=== PATIENT | female | born 1955 | race Caucasian/White ===

== ENCOUNTER 2018-03-28 15:01 | Outpatient (CLI) | payer OTHER, SELFPAY ==
[2018-03-28 15:21] LABS: Absolute Basophil Count 0.01 k/cumm (0.0-0.2); Absolute Eosinophil Count 0.06 k/cumm (0.0-0.7); Absolute Lymphocyte Count 0.95 k/cumm (1.2-3.4); Absolute Monocyte Count 0.89 k/cumm (0.11-0.7); Absolute Neutrophil Count 1.59 k/cumm (1.2-6.7); Basophils % 0.3; Eosinophils % 1.7; HGB 12.4 g/dL (12.0-15.5); Lymphocytes % 27.1; Mean Corp. HGB Concentration 33.5 g/dL (32.0-36.0); Mean Corpuscular Hemoglobin 33.5 pg (27.0-33.0); Mean Platelet Volume 8.4 fL (8.0-11.0); Monocytes % 25.4; Neutrophils % 45.5; Platelet Count 188 x1000/uL (130-400); RBC Distribution Width 12.6 % (11.7-14.6)
[2018-03-28 15:33] LABS: ALT 28 U/L (12-78); AST 23 U/L (15-37); Alkaline Phosphatase 48 U/L (46-116); BUN 17 mg/dL (7-18); Bilirubin, Total 0.5 mg/dL (0.2-1.0); Calcium 8.7 mg/dL (8.5-10.1); Chloride 99 mmol/L (98-107); Glucose 89 mg/dL (70-100); Potassium 4.1 mmol/L (3.5-5.1); Sodium 135 mmol/L (136-145); Total Protein 7.4 g/dL (6.4-8.2)
== END 2018-03-28 15:21 ==
PROVIDERS: PCP Family Medicine; Visit Provider Internal Medicine Hematology & Oncology
DX: Z85.048 Personal history of other malignant neoplasm of rectum, rectosigmoid junction, and anus (principal)
CPT/HCPCS: 36415; 80053; 85025

== ENCOUNTER 2018-09-25 15:29 | Outpatient (CLI) | payer OTHER, SELFPAY ==
[2018-09-25 15:54] LABS: Abs Immature Grans 0.01 k/cumm (0.0-0.09); HCT 40.1 % (36.0-46.0); HGB 13.3 g/dL (12.0-15.5); Mean Corp. HGB Concentration 33.2 g/dL (32.0-36.0); Mean Corpuscular Hemoglobin 33.1 pg (27.0-33.0); Mean Corpuscular Volume 99.8 fL (80-95); Platelet Count 208 x1000/uL (130-400); RBC 4.02 m/cumm (4.00-5.20); RBC Distribution Width 12.6 % (11.7-14.6)
[2018-09-25 16:08] LABS: ALT 24 U/L (12-78); AST 21 U/L (15-37); Albumin 4.3 g/dL (3.4-5.0); Alkaline Phosphatase 62 U/L (46-116); Anion Gap 6.1 mmol/L (3-11); BUN 9 mg/dL (7-18); Bilirubin, Total 0.4 mg/dL (0.2-1.0); CO2 32.9 mmol/L (21.0-32.0); Calcium 9.2 mg/dL (8.5-10.1); Chloride 102 mmol/L (98-107); Glucose 84 mg/dL (70-100); Potassium 4.1 mmol/L (3.5-5.1); Sodium 141 mmol/L (136-145); Total Protein 7.8 g/dL (6.4-8.2)
[2018-09-25 16:38] LABS: Absolute Lymphocyte Count 0.88 k/cumm (1.2-3.4); Absolute Monocyte Count 0.65 k/cumm (0.11-0.7); Absolute Neutrophil Count 1.77 k/cumm (1.2-6.7); Atypical Lymphocytes % 4; Diff Comment Manual Differential; RBC Morphology Normal
== END 2018-09-25 15:49 ==
PROVIDERS: PCP General Practice; Visit Provider Nurse Practitioner Adult Health
DX: C21.0 Malignant neoplasm of anus, unspecified (principal)
CPT/HCPCS: 36415; 80053; 85025

== ENCOUNTER 2019-01-29 11:09 | Outpatient (CLI) | payer OTHER, SELFPAY ==
--- NOTE | 2019-01-29 13:04 | DI.RAD_ITS ---
SYMPTOMS/DIAGNOSIS: HIP PAIN BILATERAL HIPS AND PELVIS: In the right hip there is mild joint space narrowing and subchondral sclerosis. Mild spurring of the acetabulum is noted. In the left hip there is mild sclerosis and spurring at the acetabulum. The sacroiliac joints and symphysis pubis are intact. The bones are normally mineralized. Mild degenerative changes are seen in the lower lumbar spine. The soft tissues are unremarkable. IMPRESSION: Mild degenerative changes of the hips bilaterally.
== END 2019-01-29 11:29 ==
PROVIDERS: Visit Provider General Practice
DX: M25.551 Pain in right hip (principal); M25.552 Pain in left hip; M16.0 Bilateral primary osteoarthritis of hip
CPT/HCPCS: 73521

== ENCOUNTER 2019-02-21 07:34 | Outpatient (CLI) | payer OTHER, SELFPAY ==
--- NOTE | 2019-02-21 11:00 | DI.RAD_ITS ---
SYMPTOM/DIAGNOSIS: LT HIP INJECTION, LT HIP DJD, M16.12, RT HIP INJECTION, RT HIP DJD FLUOROSCOPY: Fluoroscopy Time: 8.8 seconds Fluoroscopy was utilized by Dr. Plaza during left hip injection. Hard copy shows intra-articular injection of the left hip. Fluoroscopy Time: 4.9 seconds Fluoroscopy was utilized by Dr. Plaza during right hip injection. Hard copy shows intra-articular injection of the right hip.
--- NOTE | 2019-02-21 11:44 | W.PROCNOTE ---
Date of service: 02/21/19 Time of Service: 11:24 Procedure Note Date of procedure: 02/21/19 Procedure: Bilateral Hip Injection with Fluoroscopic Guidance Surgeon/Proceduralist/Physician: Caesar Plaza Procedure Diagnosis: Bilateral Hip Osteoarthritis Procedure Indications: Meghana has had persistent pain of the bilateral hip and groin. Noninvasive measures have been tried. The pain has not responded to normal measures and there is some early arthritis on the x-rays. To serve as both diagnostic and therapeutic, an injection under fluoroscopy was recommended. I had discussed the risks of the procedure and the patient elected to proceed. Procedure Description: Meghana was greeted in the flouroscopy room. The correct side was identified and the consent was reviewed with the patient and signed. The patient was then placed in the supine position on the fluoroscopy table. The LEFT hip was then prepped with Chloraprep. The anterolateral injection starting point was identiifed by bony landmarks and fluoroscopy. The skin and soft tissue in the tract of the injection was anesthetized with 1% Lidocaine. A spinal needle was then inserted deep into the hip joint at the level of the lateral femoral neck under fluoroscopic guidance. A small amount of Omnipaque solution was injected to confirm intraarticular placement. Once confirmed, the hip was injected with 5cc of 0.5% Bupivicaine and 80mg of Depo-Medrol. A bandaid was placed on the injection site. The back table was kept sterile and the draping and patient was repositioned. The RIGHT hip was then prepped with Chloraprep. The anterolateral injection starting point was identiifed by bony landmarks and fluoroscopy. The skin and soft tissue in the tract of the injection was anesthetized with 1% Lidocaine. A spinal needle was then inserted deep into the hip joint at the level of the lateral femoral neck under fluoroscopic guidance. A small amount of Omnipaque solution was injected to confirm intraarticular placement. Once confirmed, the hip was injected with 5cc of 0.5% Bupivicaine and 80mg of Depo-Medrol. A bandaid was placed on the injection site. The patient tolerated the procedure well and noted improvement in pre-injection pain.
[2019-02-21] MEDS: Omnipaque 300 MG/ML 10 ML BTL IJ (12:17)
[2019-02-21] MEDS: methylPREDNISolone ACETATE 80 MG/ML VIAL IM (12:17)
[2019-02-21] MEDS: Bupivacaine 0.5% Pres-Free 10 ML VIAL IJ (12:19)
== END 2019-02-21 07:54 ==
PROVIDERS: PCP General Practice; Visit Provider Student in an Organized Health Care Education/Training Program
DX: M25.551 Pain in right hip (principal); M25.552 Pain in left hip; M16.0 Bilateral primary osteoarthritis of hip
CPT/HCPCS: 20610; 77002; J1040

== ENCOUNTER 2019-04-12 11:23 | Outpatient (CLI) | payer OTHER, SELFPAY ==
[2019-04-12 15:26] LABS: Calculated LDL 144 mg/dL; Cholesterol 244 mg/dL (50-200); HDL Cholesterol 93 mg/dL (40-60); Triglyceride 39 mg/dL (30-150)
== END 2019-04-12 11:43 ==
PROVIDERS: PCP General Practice; Visit Provider General Practice
DX: Z13.220 Encounter for screening for lipoid disorders (principal)
CPT/HCPCS: 36415; 80061

== ENCOUNTER 2019-10-30 01:07 | Outpatient (CLI) | payer MEDICARE, OTHER, SELFPAY ==
--- NOTE | 2019-10-30 11:15 | DI.DEXA_ITS ---
EXAM: XR DEXA BONE DENSITY W/WO RINKU CLINICAL HISTORY: screening osteoporosis (baseline),z78.0 TECHNIQUE: [employer] Horizon C densitometer. COMPARISON: XR hip pelvis adult Bl from 01/29/2019 FINDINGS: RINKU image shows no evidence of compression fractures. The bone mineral density measurements of the lumbar spine correspond to a total T-score of 0, in the normal range. The bone mineral density measurements of the left hip correspond to a total T-score of -0.7 and a fem oral neck T-score of -1.0, at the low normal range. The bone mineral density measurements of the left forearm correspond to a T-score of the distal 3rd o f -0.4, in the normal range. IMPRESSION: Bone mineral density is within the normal range.
== END 2019-10-30 01:27 ==
PROVIDERS: PCP Nurse Practitioner Adult Health; Visit Provider Nurse Practitioner Adult Health
DX: Z13.820 Encounter for screening for osteoporosis (principal); Z78.0 Asymptomatic menopausal state
CPT/HCPCS: 77080

== ENCOUNTER 2019-11-26 13:55 | Outpatient (CLI) | payer MEDICARE, SELFPAY ==
--- NOTE | 2019-11-26 13:41 | DI.RAD_ITS ---
EXAM: XR PELVIS AP CLINICAL HISTORY: PRE OP TECHNIQUE: COMPARISON: CR XR hip pelvis adult Bl from 01/29/2019 FINDINGS: Single AP view of the pelvis was obtained. There is virtually complete loss of the cartilaginous reagan nt space of the right hip, very prominent subchondral cystic and sclerotic changes are noted in the f emoral head with some contour deformity of the right femoral head superiorly. Acetabulum also shows significant sclerosis. There are moderate degenerative changes of the left hip. IMPRESSION: Severe DJD right hip, moderate DJD left hip.
== END 2019-11-26 14:15 ==
PROVIDERS: PCP Nurse Practitioner Adult Health; Visit Provider Physician Assistant
DX: M16.11 Unilateral primary osteoarthritis, right hip (principal); Z01.818 Encounter for other preprocedural examination
CPT/HCPCS: 72170

== ENCOUNTER 2019-11-29 02:08 | Outpatient (CLI) | payer MEDICARE, SELFPAY ==
[2019-11-29 12:19] LABS: HCT 35.9 % (36.0-46.0); HGB 11.9 g/dL (12.0-15.5); Mean Corp. HGB Concentration 33.1 g/dL (32.0-36.0); Mean Corpuscular Hemoglobin 32.8 pg (27.0-33.0); Mean Corpuscular Volume 98.9 fL (80-95); Mean Platelet Volume 8.7 fL (8.0-11.0); Platelet Count 235 x1000/uL (130-400); RBC 3.63 m/cumm (4.00-5.20); RBC Distribution Width 12.6 % (11.7-14.6); White Blood Cell Count 3.18 k/cumm (4.4-10.8)
[2019-11-29 13:37] LABS: BUN 13 mg/dL (7-18); CREATININE 0.75 mg/dL (0.55-1.02); Calcium 9.1 mg/dL (8.5-10.1); Chloride 99 mmol/L (98-107); Glucose 96 mg/dL (74-106); Potassium 4.2 mmol/L (3.5-5.1); Sodium 134 mmol/L (136-145)
[2019-11-30 14:34] LABS: COVID-19 RT-PCR Result NEGATIVE (Negative)
== END 2019-11-29 02:28 ==
PROVIDERS: PCP Nurse Practitioner Adult Health; Visit Provider Student in an Organized Health Care Education/Training Program
DX: M25.551 Pain in right hip (principal); M16.11 Unilateral primary osteoarthritis, right hip; Z11.59 Encounter for screening for other viral diseases; Z01.818 Encounter for other preprocedural examination
CPT/HCPCS: 36415; 80048; 85027; 86850; 86900; 86901; U0003

== ENCOUNTER → 2019-12-03 08:03 | Outpatient (BNVA) | payer MEDICARE, SELFPAY | PROVIDERS: PCP Nurse Practitioner Adult Health; Referring Provider Nurse Practitioner Adult Health; Visit Provider Student in an Organized Health Care Education/Training Program | DX: R69 Illness, unspecified (principal) ==

== ENCOUNTER 2019-12-03 09:06 | Observation (INO) | payer MEDICARE, SELFPAY ==
[2019-12-03] VITALS (11 sets, daily range): BP systolic 94–149; BP diastolic 57–83; PULSE 41–61; RESP 12–20; TEMP 35.1–37.1; O2SAT 93–99
[2019-12-03] MEDS: Celecoxib 200 MG CAP 400 MG PO (09:56)
[2019-12-03] MEDS: Lactated Ringers 1,000 ML 80 ML IV (09:57)
[2019-12-03] MEDS: Acetaminophen 500 MG TAB 1000 MG PO ×2 (09:57→15:00)
[2019-12-03] MEDS: ceFAZolin 2 GM/50 ML BAG IVPB (11:29)
--- NOTE | 2019-12-03 11:37 | W.PM.DS.N ---
DS: Diagnosis Discharge Diagnosis (1) Degenerative joint disease of right hip: Status: Chronic Discharge Plan Disposition Patient Disposition: HOME Condition: Good Discharge Details Reason For Visit: OA (R) HIP Admit Date/Time: 12/03/19 09:06 Admit Provider: Caesar Plaza Attending Provider: Caesar Plaza Primary Care Provider: Martha Torres Hospital Course Hospital Course: Patient was admitted to the medical/surgical floor following the procedure. The surgery was tolerated well without any notable medical, surgical, or anesthetic complications. Mobilization began postoperatively. The kenyon catheter was removed and voiding spontaneously. Vitals were stable. Physical therapy worked with the patient and was cleared for discharge home. No acute medical issues. Pain was controlled on oral regimen. Home Meds and New Rx's Prescriptions: New aspirin 81 mg tablet,delayed release (DR/EC) 81 mg PO BID Qty: 60 RF: 0 acetaminophen 500 mg tablet 1,000 mg PO Q8H PRN (Reason: pain) Qty: 90 RF: 3 ibuprofen 600 mg tablet 600 mg PO TID PRNQty: 90 RF: 3 oxycodone 5 mg tablet 5 mg PO Q4H Qty: 12 RF: 0 Continued gabapentin 100 mg capsule 100 mg PO DAILY RF: 0 tretinoin [Retin-A] 0.1 % cream 1 applic TP QHS PRN (Reason: acne) Qty: 20 RF: 0 multivitamin [Daily Multi-Vitamin] 1 EACH tablet 1 ea PO DAILY RF: 0 citalopram [Celexa] 10 MG tablet 10 mg PO DAILY RF: 0 hydrocortisone [Anti-Itch (HC)] 1 % cream 1 applic TP BID PRNRF: 0 eszopiclone [Lunesta] 3 mg tablet 1.5 mg PO QHS PRN (Reason: insomnia) Qty: 45 RF: 1 omeprazole 10 mg Capsule,Delayed Release(Dr/Ec) 10 mg PO DAILY RF: 0 Discontinued ibuprofen 800 mg tablet 800 mg PO TID PRN (Reason: pain) Qty: 90 RF: 3 Discharge Instructions Additional Instructions: Dr. Plaza's Total Hip Discharge Instructions Activity: The most important activity is to walk. You should try to take short walks a few times a day. You have no restrictions on movement or positioning, but do not try to force what you do. You will find some stiffness and weakness with hip flexion (lifting your knee). Do not try to strengthen this too early, continue to practice walking and stairs and this will come. - Outpatient physical therapy can be helpful to help return you to a normal gait and improve your flexibility and strength. This can start around 2 weeks. For most patients, it?s not necessary. Usually this is determined at the time of discharge or at the first post-operative visit. - You should wear the VALDO hose on both legs for 2 weeks. You may remove those at night. These prevent blood pooling and swelling. Dressing: Keep the surgical dressing in place for at least one week, although it may stay in place untill follow-up. It may get wet after 3 days but avoid soaking the dressing. If it gets wet, just lightly pat dry. Most people prefer to cover the dressing with some ClingWrap, Saran Wrap, to keep it dry. After the first week it may be removed if desired and then replaced with light gauze and tape or nothing. It is important to always keep some gauze or the dressing between skin folds, especially when you are sitting, so the incision is not folded over on itself at the belly fold. Medications: - You should take Tylenol and an anti-inflammatory Ibuprofen as your primary pain control medications - You have been prescribed a stronger pain medication Oxycodone for breakthrough pain, take as needed as prescribed. - You will be taking Aspirin 81mg twice a day for DVT prevention unless instructed otherwise. - If you have constipation you should take Colace or Miralax (both [id number]). It takes most people 3-4 days to have a bowel movement. Follow-up: 2 weeks. If you have any acute concerns or questions, please do not hesitate to contact the office at [phone]. You may contact Dr. Plaza with any questions after hours through the hospital at [phone] or on his cell phone at [phone]. Stand Alone Forms: Nursing Discharge Form Referrals: Caesar Plaza MD [ [facility] STAFF PHYSICIAN] - 12/20/19 11:30 am Activity:: Activity as Tolerated Equipment/Supplies:: Walker Diet:: As Tolerated Discharge Orders Discharge Orders: Discharge Order (Routine); Ordered 12/03/19 Ordered By: Caesar Plaza DS: Summary Status at Discharge Functional status at discharge: uses cane/walker Overall status at discharge: patient is progressing back to baseline Mental Status: mental status grossly normal Speech and Movement: speech and movement normal Mood: congruent mood Affect: normal affect Exam Psych Mental Status: mental status grossly normal Speech and Movement: speech and movement normal Mood: congruent mood Affect: normal affect DS: Data Vitals/I&O Vitals and I&O: Vital Signs Temperature 37.1 C 12/03/19 09:32 Pulse 61 12/03/19 09:32 Pulse Rhythm Regular 12/03/19 09:32 Respiratory Rate 18 12/03/19 09:32 Blood Pressure 116/74 12/03/19 09:32 Pulse Oximetry 96 12/03/19 09:32 Oxygen Delivery Method Room Air 12/03/19 09:32 Oxygen Flow Rate 0 12/03/19 09:32 Pain Level 6 12/03/19 09:32 Intake & Output 12/02/19 12/02/19 12/03/19 11:59 23:59 11:59 Weight 52.3 kg [facility] Social History (Updated 07/22/19 @ 09:08 by Luzma Mcfarland RN) Smoking/Tobacco Use Status: Former Tobacco Use Quit Date: 03/18/83 Tobacco: How many years used: 30 Alcohol Intake: current Alcohol Intake frequency: 0-2 drinks per day Alcohol type: beer and wine Drug use: Rarely Substance use type: marijuana Adopted: No Foster care: No Household members: none Housing: house Number of Children: 0 Communication Needs: None Education Level: college Do you need help understanding health information?: Never current occupation: [employer] Sexually active: No Do you think of yourself as: straight/heterosexual Current gender identity: female What type of physical activity do you participate in: none Seatbelt use: always Drive intox or ride w/intox public transit trolley driver: No Working smoke detector in home: Yes Fire extinguisher in home: Yes Carbon monox detector in home: Yes Do you feel safe at home: Yes
[2019-12-03] MEDS: Bupivacaine 0.25% Pres-Free 30 ML VIAL (12:12)
[2019-12-03] MEDS: Ketorolac 30 MG/ML VIAL (12:12)
--- NOTE | 2019-12-03 12:45 | DI.RAD_ITS ---
EXAM: XR HIP RT IN OR CLINICAL HISTORY: DJD RIGHT HIP TECHNIQUE: 2D and realtime digital imaging was performed. CONTRAST MATERIAL: Refer to procedure report. COMPARISON: CR XR PELVIS AP from 11/26/2019 FINDINGS: Fluoroscopy was provided for Dr. Plaza during the performance of a right total hip replacement. Please refer to the procedure report for complete details. Fluoro time: 35.5 seconds IMPRESSION: Status post right total hip replacement.
--- NOTE | 2019-12-03 14:44 | PT.INIE ---
Date of service: 12/03/19 Time of Service: 14:44 PT Notes Visit Reasons: OA (R) HIP Physical Therapy Inpatient Initial Evaluation Date: 12/03/2019 Referring Doctor: Caesar Plaza MD PT Orders: PT CONSULT: Status post Ortho surgery. Status post right OLIVIA Precautions: Fall. Standard. WBAT on right LE. Patient Profile/Admitting Diagnosis: Meghana is a 64-year-old female with degenerative joint disease of the right hip and is status post right total hip arthroplasty on postoperative day 0. PMHX: Medical History (Updated 11/13/19 @ 12:52 by Martha Torres NP) Anal cancer (Resolved ~2012) 2012 s/p chemo/XRT, invasive squamous cell CA [facility] Onc--last OV 09/26/2018--discharged from onc at 3 yrs (09/2018) [facility] Lilian Rosario MD Surg, last colo 2015 with f/u 10 years Basal cell carcinoma of skin (Resolved 04/20/15) Scattered (face, back, arm, leg); [place] Degenerative joint disease of left hip (Chronic) Degenerative joint disease of right hip (Chronic) GERD (gastroesophageal reflux disease) (Chronic) Hyperlipidemia (Chronic) ASCVD 10-year risk score 34.6% (low)-->no statin indicated (2019) Insomnia (Chronic) L/T Lunesta Ovarian cyst (Inactive ~1969) Postmenopausal atrophic vaginitis (Chronic 01/12/16) Surgical History (Updated 07/22/19 @ 10:29 by Luzma Mcfarland RN) History of hysterectomy (Chronic ~1997) Total; noncancerous S/P bilateral breast implants (Acute) S/P unilateral salpingo-oophorectomy (Acute) pt unsure of which side per [facility] Surg hx Social History/Home Situation: Patient lives alone in a multilevel home with 2 low steps to enter. She has a flight of stairs to the second floor of the house where her bedroom is and she also has another flight down to her basement. Patient is independent with all aspects of ADLs without the use of an assistive ambulatory device nor any adaptive equipment prior to surgery. Equipment Owned/DME: None Subjective: Patient reports her bottom being numb. Her right knee felt a little wobbly with each step. She denies headache, chest pain, and dizziness throughout PT session. She is hopeful that she can go home today if medically cleared to do so. Objective: General Observation: Mepilex Ag over surgical incision on right hip. Bilateral TEDS on. Mental Status: Alert and oriented x4 Pain: None reported. ROM: Right Upper Extremity: Shoulder Flexion WFL. Shoulder abduction WFL. Elbow flexion WFL. Wrist flexion WFL. Opening and closing of hand WFL. Left Upper Extremity: Shoulder Flexion WFL. Shoulder abduction WFL. Elbow flexion WFL. Wrist flexion WFL. Opening and closing of hand WFL. Right Lower Extremity: Hip flexion WFL. Hip abduction WFL. Knee flexion WFL. Ankle dorsiflexion WFL. Ankle plantarflexion WFL. Left Lower Extremity: Hip flexion WFL. Hip abduction WFL. Knee flexion WFL. Ankle dorsiflexion WFL. Ankle plantarflexion WFL. Strength: Right Upper Extremity: Shoulder flexors 5/5. Shoulder abductors 5/5. Elbow flexors 5/5. Elbow extensors 5/5. Sensitometrist strong. Left Upper Extremity: Shoulder flexors 5/5. Shoulder abductors 5/5. Elbow flexors 5/5. Elbow extensors 5/5. Sensitometrist strong. Right Lower Extremity: Hip flexors 4/5. Hip abductors 4/5. Knee flexors 4/5. Knee extensors 4/5. Ankle dorsiflexors 5/5. Ankle plantarflexors 5/5. Left Lower Extremity:Hip flexors 5/5. Hip abductors 5/5. Knee flexors 5/5. Knee extensors 5/5. Ankle dorsiflexors 5/5. Ankle plantarflexors 5/5. Sensation: Diminished on bilateral gluteal area and right proximal thigh. Supine to sit supervision Sit to supine supervision Sit to stand contact-guard assist using B UE for support, requiring front wheeled walker Stand to sit contact-guard assist using B UE for support, requiring front wheeled walker Bed to chair contact-guard assist using B UE for support, requiring front wheeled walker Chair to bed contact-guard assist using B UE for support, requiring front wheeled walker Gait: Patient tolerated level surface ambulation of 100 feet using front wheeled walker with contact-guard assist of PT and wheelchair follow of nurse Chowdhury. Right LE appeared unsteady at the beginning of stance phase during the first half of the walk due to decreased eccentric quadriceps control. Step to gait pattern. Decreased kymberly. Balance: Static Sitting: Normal Dynamic Sitting: Normal Static Standing: Fair Dynamic Standing: Fair Special Tests: Mobility Limitations Standardized Measure [facility] AM-PAC 6 clicks Basic Mobility Inpatient Short Form: Raw Score: 20 CMS Score: 36% deficit Informed Consent/Education: Patient instructed in purpose of PT consult and plan of care. Assessment: Meghana demonstrates need for an assistive ambulatory device for all mobility ADL performance, difficulty with walking, and impaired balance skills due to postop status. She is a 64-year-old female with degenerative joint disease of the right hip and is status post right total hip arthroplasty on postoperative day 0. Patient presents with clinical signs and symptoms consistent with current/admitting diagnoses that have resulted to mobility limitations, gait instability, generalized weakness, and impairment of motor control as demonstrated by the following impairment level findings: 1. Decreased strength to right hip major muscle groups 2. Impaired standing balance 3. Impaired activity tolerance Impairments are contributing to the following functional limitations: 1. Inability to safely ambulate without assistive device and physical assistance 2. Increase completion time for mobility ADL performance 3. Increased fall risk 6. Inability to negotiate steps alone safely Patient is assessed as a [id number] moderate complexity based on the following: History: Meghana is a 64-year-old female with impairment level findings, functional limitations, and past medical history as listed above Examination: Demonstrable impairment in strength, balance, and mobility level with underlying impairments and functional limitations as documented above Presentation: Evolving Decision Makin moderate complexity Goals: Goals X1 week 1. Supine-Sit independent 2. Sit-Supine independent 3. Sit-Stand independent 4. Stand-Sit independent 5. Bed-Chair independent 6. Chair-Bed independent 7. Independent gait on level surface with use of least restrictive device for at least 300 feet without report of pain nor dyspnea 8. Independent stair negotiation while holding onto bilateral rails for at least 12 steps without report of pain nor dyspnea 9. Independent with home exercise program 10. Good static and dynamic standing balance/tolerance Plan of Care/Treatment Plan: 1-2x/day, 7 days/week x 1 week. Initiate Physical Therapy intervention for strengthening, bed mobility, transfers, gait, stairs, balance training, use of assistive device. PT Intervention: Session today consisted of initial physical therapy evaluation as well as education and training on safe mobility ADL performance using a front wheeled walker. DISCHARGE RECOMMENDATIONS: Patient may benefit from stair negotiation training to facilitate safe management of stairs at home. Patient will benefit from a front wheeled walker to promote functional independence at discharge destination. TREATMENT CODE/TIME: 51589 x 25 minutes, [id number] x 16 minutes, beginning at 14:44 PM. Thank you very much for this referral. Yomaira Butterfield PT, DPT, CLT [facility] [place], [place]
[2019-12-03] MEDS: Normal Saline Flush 10 ML SYR IV (15:12)
[2019-12-03] MEDS: ceFAZolin 1 GM/50 ML BAG IVPB (15:31)
--- NOTE | 2019-12-03 16:00 | PT.INDS ---
Date of service: 12/03/19 PT Notes Visit Reasons: OA (R) HIP Inpatient Physical Therapy Discharge Summary Dates: 12/03/2019 Dates of Service: 12/03/2019 only. Same-day discharge to home. Referring Doctor: Caesar Plaza MD PT Orders: PT CONSULT: Status post Ortho surgery. Status post right OLIVIA Precautions: Fall. Standard. WBAT on right LE. Patient Profile/Admitting Diagnosis: Meghana is a 64-year-old female with degenerative joint disease of the right hip and is status post right total hip arthroplasty on postoperative day 0. PMHX: Medical History (Updated 11/13/19 @ 12:52 by Martha Torres NP) Anal cancer (Resolved ~2012) 2013 s/p chemo/XRT, invasive squamous cell [place] [facility] [place] Onc--last OV 09/26/2018--discharged from onc at 5 yrs (09/2018) [facility] [place] Lilian Rosario MD Surg, last colo 2015 with f/u 10 years Basal cell carcinoma of skin (Resolved 04/20/15) Scattered (face, back, arm, leg); [place] Degenerative joint disease of left hip (Chronic) Degenerative joint disease of right hip (Chronic) GERD (gastroesophageal reflux disease) (Chronic) Hyperlipidemia (Chronic) ASCVD 10-year risk score 34.6% (low)-->no statin indicated (2019) Insomnia (Chronic) L/T [place] Ovarian cyst (Inactive ~1969) Postmenopausal atrophic vaginitis (Chronic 01/12/16) Surgical History (Updated 07/22/19 @ 10:29 by Luzma Mcfarland RN) History of hysterectomy (Chronic ~1997) Total; noncancerous S/P bilateral breast implants (Acute) S/P unilateral salpingo-oophorectomy (Acute) pt unsure of which side per [facility] [place] Surg hx Social History/Home Situation: Patient lives alone in a multilevel home with 2 low steps to enter. She has a flight of stairs to the second floor of the house where her bedroom is and she also has another flight down to her basement. Patient is independent with all aspects of ADLs without the use of an assistive ambulatory device nor any adaptive equipment prior to surgery. Equipment Owned/DME: None Subjective: Patient reports her bottom being numb. Her right knee felt a little wobbly with each step. She denies headache, chest pain, and dizziness throughout PT session. She is hopeful that she can go home today if medically cleared to do so. Objective: General Observation: Mepilex Ag over surgical incision on right hip. Bilateral TEDS on. Mental Status: Alert and oriented x4 Pain: None reported. ROM: Right Upper Extremity: Shoulder Flexion WFL. Shoulder abduction WFL. Elbow flexion WFL. Wrist flexion WFL. Opening and closing of hand WFL. Left Upper Extremity: Shoulder Flexion WFL. Shoulder abduction WFL. Elbow flexion WFL. Wrist flexion WFL. Opening and closing of hand WFL. Right Lower Extremity: Hip flexion WFL. Hip abduction WFL. Knee flexion WFL. Ankle dorsiflexion WFL. Ankle plantarflexion WFL. Left Lower Extremity: Hip flexion WFL. Hip abduction WFL. Knee flexion WFL. Ankle dorsiflexion WFL. Ankle plantarflexion WFL. Strength: Right Upper Extremity: Shoulder flexors 5/5. Shoulder abductors 5/5. Elbow flexors 5/5. Elbow extensors 5/5. Hospice Educator strong. Left Upper Extremity: Shoulder flexors 5/5. Shoulder abductors 5/5. Elbow flexors 5/5. Elbow extensors 5/5. Hospice Educator strong. Right Lower Extremity: Hip flexors 4/5. Hip abductors 4/5. Knee flexors 4/5. Knee extensors 4/5. Ankle dorsiflexors 5/5. Ankle plantarflexors 5/5. Left Lower Extremity:Hip flexors 5/5. Hip abductors 5/5. Knee flexors 5/5. Knee extensors 5/5. Ankle dorsiflexors 5/5. Ankle plantarflexors 5/5. Sensation: Diminished on bilateral gluteal area and right proximal thigh. Supine to sit supervision Sit to supine supervision Sit to stand contact-guard assist using B UE for support, requiring front wheeled walker Stand to sit contact-guard assist using B UE for support, requiring front wheeled walker Bed to chair contact-guard assist using B UE for support, requiring front wheeled walker Chair to bed contact-guard assist using B UE for support, requiring front wheeled walker Gait: Patient tolerated level surface ambulation of 100 feet using front wheeled walker with contact-guard assist of PT and wheelchair follow of nurse Chowdhury. Right LE appeared unsteady at the beginning of stance phase during the first half of the walk due to decreased eccentric quadriceps control. Step to gait pattern. Decreased kymberly. Balance: Static Sitting: Normal Dynamic Sitting: Normal Static Standing: Fair Dynamic Standing: Fair Special Tests: Mobility Limitations Standardized Measure [facility] [place] AM-PAC 6 clicks Basic Mobility Inpatient Short Form: Raw Score: 20 CMS Score: 36% deficit Informed Consent/Education: Patient instructed in purpose of PT consult and plan of care. Assessment: Meghana demonstrates need for an assistive ambulatory device for all mobility ADL performance, difficulty with walking, and impaired balance skills due to postop status. She is a 64-year-old female with degenerative joint disease of the right hip and is status post right total hip arthroplasty on postoperative day 0. Patient presents with clinical signs and symptoms consistent with current/admitting diagnoses that have resulted to mobility limitations, gait instability, generalized weakness, and impairment of motor control as demonstrated by the following impairment level findings: 1. Decreased strength to right hip major muscle groups 2. Impaired standing balance 3. Impaired activity tolerance Impairments are contributing to the following functional limitations: 1. Inability to safely ambulate without assistive device and physical assistance 2. Increase completion time for mobility ADL performance 3. Increased fall risk 6. Inability to negotiate steps alone safely Goals: Goals X1 week 1. Supine-Sit independent NOT MET 2. Sit-Supine independent NOT MET 3. Sit-Stand independent NOT MET 4. Stand-Sit independent NOT MET 5. Bed-Chair independent NOT MET 6. Chair-Bed independent NOT MET 7. Independent gait on level surface with use of least restrictive device for at least 300 feet without report of pain nor dyspnea NOT MET 8. Independent stair negotiation while holding onto bilateral rails for at least 12 steps without report of pain nor dyspnea NOT MET 9. Independent with home exercise program NOT MET 10. Good static and dynamic standing balance/tolerance NOT MET DISCHARGE RECOMMENDATIONS: Patient may benefit from stair negotiation training to facilitate safe management of stairs at home. Patient will benefit from a front wheeled walker to promote functional independence at discharge destination. TREATMENT CODE/TIME: NC. Same-day discharge Thank you very much for this referral. Yomaira Butterfield PT, DPT, CLT [facility] [place], [place]
--- NOTE | 2019-12-03 17:32 | PDOC.CMPRO ---
- If Service Date Differs Date of service: 12/03/19 Time of Service: 17:32 Care Management Progress Note CM provided a FWW to the pt at the request of primary RN and PT. PT will put together the walker for the pt prior to discharge. Meghana is discharging home post surgically. She has two sets of stairs in her home, but is all set to live on one level during this acute phase of healing post surgically. No additional needs at this time.
[2019-12-03] MEDS: oxyCODONE 5 MG TAB PO (19:02)
--- NOTE | 2019-12-04 06:19 | ROE_ITS ---
Date of service: 12/03/19 Time of Service: 13:19 Operative Note Operative Note DATE OF PROCEDURE: 12/03/19 PRE-OP DIAGNOSIS: Right hip Osteoarthritis POST-OP DIAGNOSIS: same PROCEDURE: Right Anterior Total Hip Arthroplasty SURGEON: Caesar Plaza PHONE OPERATOR: Colin Bean ANESTHESIA: spinal ESTIMATED BLOOD LOSS: 300 PATHOLOGY: none sent TOURNIQUET TIME: 0 COMPLICATIONS: None Patient was transported to: PACU Patient's condition: stable Implants: 1. Depuy [place] Acetabular Component, 50 mm 2. Depuy Acetabular Liner, 50 x 32 mm 3. Depuy Corail standard Collared femoral Stem, Size 10 4. Depuy Altrx Ceramic Femoral Head, Size 32+5 mm Indications: I have seen Meghana in clinic for symptoms of hip arthritis, confirmed with radiographic findings. Meghana has exhausted nonoperative methods and was having significant limitations in daily function and desired better function and less pain. I discussed the technical details of a hip replacement. I explained the risks of the procedure to include, but not limited to, bleeding, infection, pain, stiffness, fracture, damage to nerves and vessels, damage to muscles and tendons, loosening, instability, leg length inequality, need for repeat procedure, blood clot and cardiopulmonary demise. Despite these risks, Meghana elected to proceed. Findings: There is some superolateral positioning of the femoral head. A large portion of the superior femoral head was loose as a piece of mostly cartilage with some attached bone. There appeared to be some osteonecrosis within the femoral head. There is notable sclerosis and deformity of the superolateral acetabulum. Procedure Description: Meghana was greeted in the preoperative holding area where the correct side was identified and marked. The consent was reviewed with the patient and signed. The history and physical was updated. All questions were answered. Meghana was taken back to the operating room. A spinal anesthestic was then administered. The patient was placed into the supine position on the operating room table. The patient was then positioned onto the ARCH table. Both feet were wrapped with Webrill cotton wrap along with Coban. The feet were placed in specialized boots for the ARCH table, well seated within the boot and secured. SCDs were applied. The patient was then slid down onto a peroneal post and the nonoperative leg was secured in a leg parikh attached to the table. The operative side was placed into the ARCH table attachment and bed height and positioning was secured. A preoperative AP pelvis was obtained to serve as a reference for determining leg lengths. Prophylactic antibiotics in the form of cefazolin were administered. 1g of Tranxemic Acid was given intravenously within 30 minutes of incision. The right leg was then prepped with Chloraprep and draped in a standard fashion. A second prep with Chloraprep was performed prior to placement of a shower-curtain type drape with Iodine impregnated skin protection. A timeout to confirm correct identity, side and site, procedure, allergies, anesthesia, and medical concerns was performed. An obliquely oriented incision was made starting lateral to the ASIS and running distal over the Tensor Fascia Carli (TFL) muscle belly toward the fibular head, approximately 10cm. The skin and soft tissue was dissected sharply, through Palak?s fascia, and to the fascia of the TFL. With the fascia and superior border of the IT band identified, the fascia was incised with a new knife just above any perforators from the IT band. The TFL muscle belly was bluntly dissected away from the fascia and moved laterally. The fat between TFL and rectus was identified to ensure the dissection was not within the TFL. Blunt dissection created space between abductors and the capsule and retractor was placed over the lateral femoral neck. The fibers of the rectus femoris tendon were identified and these were freed from the anterior capsule. A second cobra retractor was placed around the medial femoral neck. The TFL was further retracted laterally to show the deep fascia. Careful dissection through this layer identified three main crossing vessels of the lateral femoral circumflex. These were cauterized in multiple locations and then cut without any noticeable bleeding. The TFL was further released bluntly from the deep fascia to expose anterior hip capsule and fat the Eb orthopaedic retractor was then placed beneath the TFL and against sartorius and medial soft tissues to protect and retract the soft tissues. A T-capsulotomy was then performed starting at the superior lateral acetabulum and moving distally to the intertrochanteric ridge. These capsular flaps were tagged with a No. 1 Ethibond and elevated from within. The capsular flaps were released to the shoulder of the lateral neck and to the lesser trochanter to give excellent visualization of the proximal femur. A neck osteotomy was performed using an oscillating saw based on preoperative templates. This cut started in the shoulder and of the lateral neck and exited medially. The saw was at all times directed medially to avoid injury to the greater trochanter. 6cm of traction was applied to the leg and the osteotomy opened. The femoral head was removed with a corkscrew, making sure to protect the TFL on its exit. This was measured on the back table to determing the starting reamer size. Portions of the rectus obscuring visualization were minimally elevated off the superior acetabulum. An anterior retractor was placed over the anterior wall between capsule and labrum and attached to the Gripper retraction system. A posterior retractor was placed similarly. This provided excellent visualization. The contents of the cotyloid fossa were removed with electrocautery and the labrum was removed with a knife. There was a notable floor osteophyte. There was significant chondromalacia of the superior acetabulum. Acetabular reaming began with a 46 mm reamer. This first reaming was directed anterior to posterior and medial to get down to the true floor. This was inspected and reamed until the true floor was reached. The anterior retractor was then released and entry and exit was provided by traction on the capsular flaps. I then reamed sequentially up to a 49 mm reamer where good fit was obtained. The larger reamers were oriented based on anatomical reference of the anterior and lateral benson to ensure proper abduction and anteversion. Positioning and size was confirmed with the fluoroscopy. A 50 mm Depuy [place] acetabular component was selected. The acetabulum was reamed around the periphery with the selected acetabular size to prevent a rim fit. The deep tissues were irrigated. The acetabular component was then impacted in a position of about 40-45 degrees of abduction and 15-20 degrees of anteversion, using the patient?s anatomy as the ultimate landmark. Fluoroscopy was used to confirm this. There was excellent tobacco sizer of the acetabular component and the inserting handle was removed. A primary acetabular screw was placed into the ilium by drilling through one of the holes in the acetabular component. This was measured and an approrpriately sized screw was placed with excellent purchase. It was checked not to be proud. A second screw was placed in a similar fashion. The acetabular liner, Depuy 50 x 32 mm polyethylene liner, was inserted and lined up with the tines of the acetabular component. There was no soft tissue interposition. The liner was then impacted into position and confirmed to be well-seated. A portion of the kirsten-articular cocktail was then injected around the acetabulum into the capsule and periosteum. This cocktail consisted of 50cc of 0.25% Bupivicaine and 20cc of Exparel, expanded to a total of 120cc. Traction was released from the femur. The leg was rotated to 120 degrees. Any remaining medial capsule was released until the lesser trochanter was easily palpable. A Finch retractor was placed medially. The lateral capsule was further released into the shoulder to allow access to the greater trochanter. A Finch retractor was placed over the greater trochanter which allowed the troc hanter to flip in front of the capsule for excellent exposure. The leg was brought down into maximal extension and 20 degrees of adduction while ensuring there was no impingement on the acetabulum. Any remnant capsule within the trochanter was released. Piriformis and obturator externis were identified and protected. There was excellent access to the proximal femur. The lateral neck remnant was removed with a rongeur. A blunt canal probe was used to identify the canal and trajectory for later broaching. A box osteotome initiated the broach course. A small curved rasp and a curved curette were used to work laterally. Broaching then began with a size 8 Corail broach. This was inserted manually around the trochanter and into the canal before mallet blows. The broach was seated to a few millimeters below the cut level based on the neck cut and the preoperative template. Sequential broaching was continued with the [employer] pneumatic broaching device until a tight fit was obtained with good rotational control of the femur. A trial standard neck was inserted along with a +5 trial head. The leg was brought out of extension and adduction and then reduced with traction and internal rotation. The leg was stable anteriorly in a position of 30 degrees of extension and 90 degrees of external rotation. Fluoroscopy was used to ensure there was no fracture and the stem was seated well. Leg lengths were checked with an AP pelvis and pelvic reference points. [employer] navigation system was used to confirm appropriate positioning and leg length and offset. Once content with the desired offset and leg lengths, the leg was brought back into extension, external rotation and adduction. The periosteum and surrounding tissue was injected with remaining portion of the kirsten-articular cocktail. The proximal femur was irrigated as well as the deep tissues. The Depuy [place] standard collared stem, size 10, was then manually inserted into the proximal femur making sure to control rotation. It was then malleted into position with light blows, giving breaks to allow bone expansion and decrease risk of fracture. The selected Depuy Altrx Ceramic Head, size 32+5 mm, was then placed onto the clean and dry trunnion and secured with impaction onto the tapered fit. The leg was brought back out of extension and adduction and reduced with traction and internal rotation. Stability was confirmed with no shuck at 90 degrees of external rotation and 30 degrees of extension. No impingement through range of motion arc. Final x-ray images were obtained with fluoroscopy to confirm adequate positioning and no intraoperative fracture. The deep tissues were thoroughly irrigated with Irrisept chlorhexadine solution. The second dose of TXA 1g was administered intravenously. The capsule was then reapproximated with the previously placed Ethibond sutures. The TFL fascia was finally closed with a No. 2 Stratafix, barbed suture. Deep tissues were then reapproximated with 0 Vicryl and a running 2-0 Vicryl. The skin was closed with a running 4-0 Monocryl in a subcuticular fashion. This was reinforced with skin glue. A Mepilex silver dressing was applied. At the end of the case, all counts were correct. Meghana was transferred to the hospital bed without difficulty and suffering no apparent complication. Meghana has a good prognosis. Physical therapy will start today and without restrictions, weight-bearing as tolerated. Aspirin 81mg BID will be used for DVT prophylaxis.
== END 2019-12-03 19:18 | disposition home or self-care (01) ==
LOC: PDS 13:27 → MS 13:28
PROVIDERS: Admitting Provider Student in an Organized Health Care Education/Training Program; PCP Nurse Practitioner Adult Health; Visit Provider Student in an Organized Health Care Education/Training Program
PROC: 0SR904A Replacement of Right Hip Joint with Ceramic on Polyethylene Synthetic Substitute, Uncemented, Open Approach (ICD-10-PCS; CPT 27130; principal; 2019-12-03 13:45)
DX: M16.11 Unilateral primary osteoarthritis, right hip (principal); M25.551 Pain in right hip; Z96.641 Presence of right artificial hip joint; M87.851 Other osteonecrosis, right femur; K21.9 Gastro-esophageal reflux disease without esophagitis
CPT/HCPCS: 27130; C1776; 97162; 97530; NC; 73501; G0378; J0690; J1885; J2250; J2405

== ENCOUNTER 2019-12-20 10:59 | Outpatient (CLI) | payer MEDICARE, SELFPAY ==
--- NOTE | 2019-12-20 11:00 | DI.RAD_ITS ---
EXAM: XR HIP RT COMPLETE AP PELVIS CLINICAL HISTORY: 1ST POST OP TECHNIQUE: COMPARISON: CR XR PELVIS AP from 11/26/2019 FINDINGS: Two views were obtained. There is a total hip joint replacement in position on the right. The compo nents appear well seated. Moderate left hip DJD noted. IMPRESSION:
== END 2019-12-20 11:19 ==
PROVIDERS: PCP Nurse Practitioner Adult Health; Referring Provider Nurse Practitioner Adult Health; Visit Provider Student in an Organized Health Care Education/Training Program
DX: Z96.641 Presence of right artificial hip joint (principal); Z47.1 Aftercare following joint replacement surgery; M16.12 Unilateral primary osteoarthritis, left hip
CPT/HCPCS: 73502

== ENCOUNTER → 2020-01-16 10:20 | Outpatient (BNVA) | payer MEDICARE, SELFPAY | PROVIDERS: PCP Nurse Practitioner Adult Health; Referring Provider Nurse Practitioner Adult Health; Visit Provider Student in an Organized Health Care Education/Training Program | DX: Z96.641 Presence of right artificial hip joint (principal); Z47.1 Aftercare following joint replacement surgery ==

== ENCOUNTER 2020-10-09 09:35 | Outpatient (CLI) | payer MEDICARE, SELFPAY ==
--- NOTE | 2020-10-09 09:30 | DI.RAD_ITS ---
EXAM: XR SHOULDER LT COMPLETE 2+V CLINICAL HISTORY: left shoulder pain TECHNIQUE: COMPARISON: No exams were available for comparison FINDINGS: Three views were obtained. Cartilaginous joint space of the glenohumeral joint appears fairly well m aintained. There are mild hypertrophic degenerative changes at the acromioclavicular joint. No othe r significant bony or soft tissue abnormality seen. IMPRESSION: Minimal degenerative changes of the AC joint. RADIATION DOSE DELIVERED: Total DLP
== END 2020-10-09 09:36 | disposition home or self-care (01) ==
LOC: DIORS 09:35
PROVIDERS: PCP Nurse Practitioner Adult Health; Referring Provider Nurse Practitioner Adult Health; Visit Provider Student in an Organized Health Care Education/Training Program
DX: M25.512 Pain in left shoulder (principal); M75.52 Bursitis of left shoulder
CPT/HCPCS: 99213; 73030

== ENCOUNTER 2020-10-27 02:20 | Outpatient (CLI) | payer MEDICARE, SELFPAY ==
--- NOTE | 2020-10-27 09:40 | DI.MRI_ITS ---
EXAM: MR UPPER JOINT LT WO CLINICAL HISTORY: lt shoulder pain, [id number]. TECHNIQUE: Multiplanar multisequence MRI was performed. COMPARISON: CR XR SHOULDER LT COMPLETE 2+V from 10/09/2020 FINDINGS: BONES: There is no fracture or contusion pattern. Note is made of an os acromiale. Mild degenerative changes are seen in the humeral head and across the os acromiale. JOINTS: Minimal degenerative changes are seen at the AC joint. The glenohumeral joint is normal. TENDONS: Supraspinatus: There is a focus of hyperintense signal seen in the supraspinatus tendon at its insert ion suspicious for partial bursal surface tear. Infraspinatus: Unremarkable. Subscapularis: Unremarkable. Teres Minor: Unremarkable. Biceps and [place]: Unremarkable. MUSCLES: Unremarkable. GLENOID LABRUM: Unremarkable on this noncontrast examination. SOFT TISSUES: Unremarkable. LIGAMENTS: Unremarkable. OTHER: There is fluid seen in the subacromial subdeltoid bursa. IMPRESSION: 1. Hyperintense focus in the supraspinatus tendon suspicious for partial tear. 2. Os acromiale 3. Mild degenerative changes present including in the AC joint. 4. Small amount of fluid seen in the subacromial subdeltoid bursa. DATA REPOSITORY:
== END 2020-10-27 02:40 ==
PROVIDERS: PCP Nurse Practitioner Adult Health; Visit Provider Student in an Organized Health Care Education/Training Program
DX: M25.512 Pain in left shoulder (principal); M19.012 Primary osteoarthritis, left shoulder; M25.412 Effusion, left shoulder
CPT/HCPCS: 73221

== ENCOUNTER → 2020-11-12 10:19 | Outpatient (BNVA) | payer MEDICARE, SELFPAY | PROVIDERS: PCP Nurse Practitioner Adult Health; Referring Provider Nurse Practitioner Adult Health; Visit Provider Physician Assistant Surgical | DX: M75.52 Bursitis of left shoulder (principal); M25.812 Other specified joint disorders, left shoulder | CPT/HCPCS: 20610; J1040 ==

== ENCOUNTER 2020-11-27 16:17 | Outpatient (REF) | payer MEDICARE, SELFPAY ==
[2020-11-27 17:32] LABS: Bilirubin Negative (Negative); Blood Trace-intact (Negative); Clarity Clear (Clear); Glucose Negative (Negative); Ketones Negative (Negative); Leukocyte Esterase Negative (Negative); Nitrite Negative (Negative); Specific Gravity 1.015 (1.005-1.025); Urobilinogen 0.2 EU/dL (Up TO 0.2)
[2020-11-27 17:44] LABS: Bacteria Negative HPF (Negative); C & S Indicated? No; Casts Negative LPF (Negative); Crystals Negative HPF (Negative); Epithelial Cells Few HPF (Negative); Mucus Negative (Negative); RBC 0-2 HPF (0-2)
== END 2020-11-27 16:18 | disposition home or self-care (01) ==
LOC: LBN 16:17
PROVIDERS: PCP Nurse Practitioner Adult Health; Visit Provider Nurse Practitioner Adult Health
DX: R30.0 Dysuria (principal)
CPT/HCPCS: 81003; 81015

== ENCOUNTER 2020-12-03 03:11 | Outpatient (CLI) | payer MEDICARE, SELFPAY ==
[2020-12-03 07:46] LABS: Abs Immature Grans 0.01 10^3/uL (0.0-0.06); Absolute Basophil Count 0.01 10^3/uL (0.0-0.2); Absolute Eosinophil Count 0.04 10^3/uL (0.0-0.7); Absolute Lymphocyte Count 0.97 10^3/uL (1.2-3.4); Absolute Monocyte Count 1.19 10^3/uL (0.1-0.8); Absolute Neutrophil Count 1.42 10^3/uL (1.2-6.7); Basophils % 0.3; Eosinophils % 1.1; HCT 39.9 % (36.0-46.0); HGB 13.1 g/dL (11.2-15.7); Immature Grans % 0.3; Lymphocytes % 26.6; MCH 32.8 pg (27.0-33.0); MCHC 32.8 % (32.0-36.0); Monocytes % 32.7; Nucleated RBC 0 %; Platelet Count 202 10^3/uL (130-400); RBC 3.99 10^6/uL (3.93-5.22); RDW 12.6 % (11.7-14.6); RDW-SD 46.7 fL; WBC 3.64 10^3/uL (4.4-10.8)
[2020-12-03 08:39] LABS: ALT 30 U/L (14-59); AST 19 U/L (15-37); Albumin 4.2 g/dL (3.4-5.0); Alkaline Phosphatase 58 U/L (46-116); BUN 13 mg/dL (7-18); Bilirubin, Total 0.3 mg/dL (0.2-1.0); CREATININE 0.8 mg/dL (0.55-1.02); Calculated LDL 163 mg/dL (<100); Chloride 105 mmol/L (98-107); Cholesterol 286 mg/dL (<200); Glucose 104 mg/dL (74-106); HDL Cholesterol 112 mg/dL (40-60); Potassium 4.9 mmol/L (3.5-5.1); Sodium 143 mmol/L (136-145); Total Protein 7.4 g/dL (6.4-8.2); Triglyceride 57 mg/dL (<150); Vitamin B12 367 pg/mL (193-986)
[2020-12-03 09:04] LABS: FREE T4 0.58 ng/dL (0.76-1.46)
== END 2020-12-03 03:12 | disposition home or self-care (01) ==
LOC: LBO 03:12
PROVIDERS: PCP Nurse Practitioner Adult Health; Visit Provider Nurse Practitioner Adult Health
DX: E78.5 Hyperlipidemia, unspecified (principal); R19.4 Change in bowel habit; R20.2 Paresthesia of skin; Z85.048 Personal history of other malignant neoplasm of rectum, rectosigmoid junction, and anus; G47.00 Insomnia, unspecified
CPT/HCPCS: 36415; 80053; 80061; 82607; 84439; 84443; 85025

== ENCOUNTER 2020-12-21 11:36 | Outpatient (CLI) | payer MEDICARE, SELFPAY ==
--- NOTE | 2020-12-21 11:00 | DI.RAD_ITS ---
Exam(s) XR HIP RT AP LAT ONLY EXAM: XR HIP RT AP LAT ONLY CLINICAL HISTORY: annual f/u R OLIVIA. TECHNIQUE: 2D digital imaging was performed. COMPARISON: CR XR HIP RT COMPLETE AP PELVIS from 12/20/2019 FINDINGS: There are stable postsurgical changes of a right total hip replacement. No evidence of hardware fail ure is seen. The bones are intact and normally mineralized. The soft tissues are unremarkable. IMPRESSION: Stable right THR. DATA REPOSITORY: RADIATION DOSE DELIVERED:
== END 2020-12-21 11:37 | disposition home or self-care (01) ==
LOC: DIORS 11:37
PROVIDERS: PCP Nurse Practitioner Adult Health; Referring Provider Nurse Practitioner Adult Health; Visit Provider Student in an Organized Health Care Education/Training Program
DX: Z47.1 Aftercare following joint replacement surgery (principal); Z96.641 Presence of right artificial hip joint; M25.552 Pain in left hip
CPT/HCPCS: 99213; 73502

== ENCOUNTER 2021-02-17 03:47 | Outpatient (CLI) | payer MEDICARE, SELFPAY ==
[2021-02-17 13:21] LABS: Calculated LDL 146 mg/dL (<100); Cholesterol 243 mg/dL (<200); HDL Cholesterol 90 mg/dL (40-60); TSH (W/Ref FT4) 1.07 uIU/mL (0.36-3.74); Triglyceride 37 mg/dL (<150)
== END 2021-02-17 03:48 | disposition home or self-care (01) ==
LOC: LBO 03:47
PROVIDERS: PCP Nurse Practitioner Adult Health; Visit Provider Nurse Practitioner Adult Health
DX: E03.9 Hypothyroidism, unspecified (principal); E78.5 Hyperlipidemia, unspecified; G47.00 Insomnia, unspecified
CPT/HCPCS: 36415; 80061; 84443

== ENCOUNTER 2021-04-01 02:01 | Outpatient (CLI) | payer MEDICARE, SELFPAY ==
--- NOTE | 2021-04-01 13:24 | W.PROCNOTE ---
Date of service: 04/01/21 Time of Service: 13:25 Procedure Note Date of procedure: 04/01/21 Procedure: Left Hip Injection with Fluoroscopic Guidance Surgeon/Proceduralist/Physician: Caesar Plaza Procedure Diagnosis: Left Hip Osteoarthritis Procedure Indications: Meghana has had persistent pain of the LEFT hip and groin. Noninvasive measures have been tried. To serve as both diagnostic and therapeutic, an injection under fluoroscopy was recommended. I had discussed the risks of the procedure and the patient elected to proceed. Procedure Description: Meghana was greeted in the flouroscopy room. The correct side was identified and the consent was reviewed with the patient and signed. The patient was then placed in the supine position on the fluoroscopy table. The LEFT hip was then prepped with Chloraprep. The anterolateral injection starting point was identiifed by bony landmarks and fluoroscopy. The skin and soft tissue in the tract of the injection was anesthetized with 1% Lidocaine. A spinal needle was then inserted deep into the hip joint at the level of the lateral femoral neck under fluoroscopic guidance. A small amount of Omnipaque solution was injected to confirm intraarticular placement. Once confirmed, the hip was injected with 6cc of 0.5% Bupivicaine and 80mg of Depo-Medrol. A bandaid was placed on the injection site. The patient tolerated the procedure well and noted improvement in pre-injection pain.
--- NOTE | 2021-04-01 13:55 | DI.RAD_ITS ---
Exam(s) RF JOINT INJECTION FLUORO GUID EXAM: RF JOINT INJECTION FLUORO GUID CLINICAL HISTORY: L HIP INJ UNDER FLUORO, degenerative joint disease lt hip TECHNIQUE: 2D and realtime digital imaging was performed. CONTRAST MATERIAL: Water soluble contrast was administered. COMPARISON: No exams were available for comparison FINDINGS: Fluoroscopy was provided for Dr. Plaza during the performance of a left hip injection. Please re karen to the procedure report for complete details. Ka,r=40.8 mGy RADIATION DOSE DELIVERED: Ka,r= mGy
[2021-04-01] MEDS: methylPREDNISolone ACETATE 80 MG/ML VIAL IM (15:46)
[2021-04-01] MEDS: Omnipaque 300 MG/ML 10 ML BTL IJ (15:46)
[2021-04-01] MEDS: Bupivacaine 0.5% Pres-Free 10 ML VIAL 6 ML IV (15:47)
== END 2021-04-01 02:21 ==
PROVIDERS: PCP Nurse Practitioner Adult Health; Visit Provider Student in an Organized Health Care Education/Training Program
DX: M16.12 Unilateral primary osteoarthritis, left hip (principal); M25.552 Pain in left hip; R10.32 Left lower quadrant pain
CPT/HCPCS: 20610; 77002; J1040

== ENCOUNTER 2021-07-06 02:21 | Outpatient (CLI) | payer MEDICARE, SELFPAY ==
[2021-07-06 09:33] LABS: HCT 42.3 % (36.0-46.0); HGB 13.7 g/dL (11.2-15.7); MCHC 32.4 % (32.0-36.0); MCV 98.8 fL (80-95); Platelet Count 212 10^3/uL (130-400); RBC 4.28 10^6/uL (3.93-5.22); RDW 12.3 % (11.7-14.6); RDW-SD 44.9 fL
[2021-07-06 11:26] LABS: TSH (W/Ref FT4) 0.53 uIU/mL (0.36-3.74); Vitamin B12 488 pg/mL (193-986)
[2021-07-06 11:32] LABS: Lipase 182 U/L (73-393)
== END 2021-07-06 02:22 | disposition home or self-care (01) ==
LOC: LBO 02:21
PROVIDERS: PCP Nurse Practitioner Adult Health; Visit Provider Nurse Practitioner Adult Health
DX: E03.9 Hypothyroidism, unspecified (principal); E53.8 Deficiency of other specified B group vitamins; R10.13 Epigastric pain; R68.89 Other general symptoms and signs
CPT/HCPCS: 36415; 83690; 85027; 82607; 84443

== ENCOUNTER 2021-08-05 01:20 | Outpatient (CLI) | payer MEDICARE, SELFPAY ==
--- NOTE | 2021-08-05 06:30 | DI.CT_ITS ---
Exam(s) CT ABDOMEN PELVIS W EXAM: CT ABDOMEN PELVIS W CLINICAL HISTORY: r/o malignancy; assess AAA,family h/o aaa,h/o anal ca,abd pain. TECHNIQUE: Imaging Protocol: Axial computed tomography images with coronal and sagittal reformatted images were created and reviewed CONTRAST MATERIAL: Intravenous: Omnipaque 100cc Oral: Oral contrast was also administered for bowel opacification. COMPARISON: CT CHEST ABD PELVIS WITH CONTRAST from 03/24/2017 FINDINGS: VISUALIZED LUNG BASES: No nodules nor pleural effusions evident. Saline breast implants again noted, only partially included in the field of view. ABDOMEN: LIVER: No new focal hepatic lesions are identified. A small benign cyst in the right hepatic lobe is unchanged from 2017, this measuring 7 x 5 millimeters. GALLBLADDER/BILIARY: No obvious gallbladder pathology. CBD is not dilated. PANCREAS: No evidence of pancreatic mass nor dilatation of the pancreatic duct. SPLEEN: Spleen is not enlarged. No obvious intrasplenic lesions. Splenic and portal veins are paten t. ADRENALS: There are no significant adrenal masses. KIDNEYS:Tiny 4 millimeters cyst in the lower pole of the right kidney. No solid renal masses. No ca lculi nor hydronephrosis.. ABDOMINAL AORTA: Mild atherosclerosis. No true aneurysmal dilatation some calcified plaque in the co mmon iliac arteries but without aneurysmal dilatation of these vessels. LYMPH NODES:There is no retroperitoneal nor paraaortic adenopathy. ABDOMINAL WALL: No evidence of significant anterior abdominal wall nor inguinal hernia. GI: There is no evidence of bowel obstruction, free air, nor abscess. PELVIS: GI: Appendix is not visualized. No evidence of acute appendicitis.No evidence of sigmoid diverticuli tis.No obvious abnormality at the level of the rectum and anus nor abnormal asymmetry in the perirect al-perianal fat. No abnormal presacral tissue nor pre coccygeal tissue. LYMPH NODES: There is no intrapelvic nor inguinal adenopathy. REPRODUCTIVE: Uterus is atrophic or surgically absent. There are no abnormal adnexal masses. URINARY BLADDER: Not distended. No obvious abnormality although somewhat difficult to evaluate becau se of beam hardening artifact from right hip prosthesis. OSSEOUS: No significant osseous lesions. Degenerative anterolisthesis of L4 upon L5. Moderate disc space narrowing at this level. Advanced d isc space narrowing at L5-S1 level and L1-2 level. IMPRESSION: 1. No evidence metastatic disease in the abdomen and pelvis. Stable solitary small 7 x 5 millimeter hepatic cyst is unchanged from 2017. 2. No new lymphadenopathy nor ascites evident. 3. Mildly atherosclerotic abdominal aorta without evidence of significant aneurysmal dilatation and w ithout significant change compared to appearance of the aorta on the CT scan of 2017. RADIATION DOSE DELIVERED: 1,135.97mGy.cm Total DLP DATA REPOSITORY: All CT scans at this facility are submitted to the National Radiology Data Registry (NRDR) Dose Index Registry (DIR) with the [employer] (ACR). RADIATION OPTIMIZATION: All CT scans at this facility use at least one of these dose optimization te chniques: automated exposure control; mA and/or kV adjustment per patient size (includes targeted exa ms where dose is matched to clinical indication); or iterative reconstruction.
[2021-08-05 07:59] LABS: CREATININE 0.7 mg/dL (0.55-1.02)
[2021-08-05] MEDS: Omnipaque 350 MG/ML 50 ML BTL PO (08:00)
[2021-08-05] MEDS: Breeza Beverage 473 ML BTL PO ×2 (08:01→08:03)
[2021-08-05] MEDS: Omnipaque 350 MG/ML 100 ML BTL IJ (08:27)
== END 2021-08-05 01:40 ==
PROVIDERS: PCP Nurse Practitioner Adult Health; Visit Provider Nurse Practitioner Adult Health
DX: R10.84 Generalized abdominal pain (principal); N28.1 Cyst of kidney, acquired; K76.89 Other specified diseases of liver; I70.0 Atherosclerosis of aorta; Z01.812 Encounter for preprocedural laboratory examination; Z85.048 Personal history of other malignant neoplasm of rectum, rectosigmoid junction, and anus; Z82.49 Family history of ischemic heart disease and other diseases of the circulatory system
CPT/HCPCS: 74177; 82565; J3490; Q9967

== ENCOUNTER 2021-08-16 00:38 | Outpatient (CLI) | payer MEDICARE, SELFPAY ==
--- NOTE | 2021-08-16 07:45 | DI.RAD_ITS ---
Exam(s) XR HIP LT COMPLETE AP PELVIS EXAM: XR HIP LT COMPLETE AP PELVIS INDICATION: assess degree of OA,M16.11,M16.12. COMPARISON: CR XR HIP RT COMPLETE AP PELVIS from 12/20/2019 TECHNIQUE: 2D digital imaging was performed. FINDINGS: There is a right hip prosthesis which is unremarkable. There is moderate narrowing of the left hip j oint space. There is moderate periarticular spurring. There is no femoral head flattening. There a re mild degenerative changes of the SI joints. IMPRESSION: Moderate degenerative changes of the left hip. DATA REPOSITORY: RADIATION DOSE DELIVERED:
--- NOTE | 2021-08-16 07:45 | DI.RAD_ITS ---
Exam(s) XR LUMBAR SPINE COMPLETE EXAM: XR LUMBAR SPINE COMPLETE CLINICAL HISTORY: assess bony alignment lumbar spine,LUMBAR SPINAL STENOSIS,M48.061. TECHNIQUE: 2D digital imaging was performed. COMPARISON: CR XR DEXA BONE DENSITY W/WO RINKU from 10/30/2019 FINDINGS: There is [id number] dextroscoliosis. There is moderate to severe narrowing of the L1-2 disc sp sharlene with endplate osteophytes. There is moderate narrowing of the L4-5 disc space. There are facet degenerative changes causing mild spondylolisthesis. There is severe narrowing of the L5-S1 disc spa ce. Facet degenerative changes are also seen at this level. Aortic calcification is seen. There is a right hip prosthesis. IMPRESSION: Degenerative disc changes greatest at L1-2 and L5 5 S1. Facet degenerative changes at L4-5 and L5-S1 . Mild scoliosis. DATA REPOSITORY: RADIATION DOSE DELIVERED:
== END 2021-08-16 00:58 ==
PROVIDERS: PCP Nurse Practitioner Adult Health; Visit Provider Nurse Practitioner Adult Health
DX: M51.37 Other intervertebral disc degeneration, lumbosacral region; M47.817 Spondylosis without myelopathy or radiculopathy, lumbosacral region; M16.12 Unilateral primary osteoarthritis, left hip; Z96.641 Presence of right artificial hip joint; M53.3 Sacrococcygeal disorders, not elsewhere classified; M48.061 Spinal stenosis, lumbar region without neurogenic claudication; R26.89 Other abnormalities of gait and mobility
CPT/HCPCS: 72110; 73502

== ENCOUNTER 2021-09-02 01:05 | Outpatient (CLI) | payer MEDICARE, SELFPAY ==
--- NOTE | 2021-09-02 08:00 | DI.RAD_ITS ---
Exam(s) RF JOINT INJECTION FLUORO GUID EXAM: RF JOINT INJECTION FLUORO GUID CLINICAL HISTORY: L HIP INJ UNDER FLUORO,DJD LT HIP, M16.12 TECHNIQUE: 2D and realtime digital imaging was performed. CONTRAST MATERIAL: Water soluble contrast was administered. COMPARISON: No exams were available for comparison FINDINGS: Fluoroscopy was provided for Dr. Plaza during the performance of a left hip injection. Please re karen to the procedure report for complete details. RADIATION DOSE DELIVERED: rober Velarde=6.23 mGy
--- NOTE | 2021-09-02 15:14 | W.PROCNOTE ---
Procedure Note Date of procedure: 09/02/21 Procedure: Left Hip Injection with Fluoroscopic Guidance Surgeon/Proceduralist/Physician: Caesar Plaza Procedure Diagnosis: Left Hip Osteoarthritis Procedure Indications: Meghana has had persistent pain of the LEFT hip and groin. She has had previous injections with excellend pain relief. Therefore, due to recurrence of pain, an injection under fluoroscopy was recommended. I had discussed the risks of the procedure and the patient elected to proceed. Procedure Description: Meghana was greeted in the flouroscopy room. The correct side was identified and the consent was reviewed with the patient and signed. The patient was then placed in the supine position on the fluoroscopy table. The LEFT hip was then prepped with Chloraprep. The anterolateral injection starting point was identiifed by bony landmarks and fluoroscopy. The skin and soft tissue in the tract of the injection was anesthetized with 1% Lidocaine. A spinal needle was then inserted deep into the hip joint at the level of the lateral femoral neck under fluoroscopic guidance. A small amount of Omnipaque solution was injected to confirm intraarticular placement. Once confirmed, the hip was injected with 6cc of 0.5% Bupivicaine and 80mg of Depo-Medrol. A bandaid was placed on the injection site. The patient tolerated the procedure well and noted improvement in pre-injection pain.
[2021-09-02] MEDS: Bupivacaine 0.5% Pres-Free 10 ML VIAL 5 ML IJ (15:15)
[2021-09-02] MEDS: methylPREDNISolone ACETATE 80 MG/ML VIAL IM (15:16)
== END 2021-09-02 01:25 ==
PROVIDERS: PCP Nurse Practitioner Adult Health; Visit Provider Student in an Organized Health Care Education/Training Program
DX: M16.12 Unilateral primary osteoarthritis, left hip (principal); M25.552 Pain in left hip; R10.32 Left lower quadrant pain
CPT/HCPCS: 20610; 77002; J1040

== ENCOUNTER → 2021-12-31 11:00 | Outpatient (BNVA) | payer MEDICARE, SELFPAY | PROVIDERS: PCP Nurse Practitioner Adult Health; Referring Provider Nurse Practitioner Adult Health; Visit Provider Physician Assistant Surgical | DX: M16.12 Unilateral primary osteoarthritis, left hip (principal) ==

== ENCOUNTER 2022-01-10 03:14 | Outpatient (CLI) | payer MEDICARE, SELFPAY ==
[2022-01-10 11:32] LABS: Source Nasal/Nares
[2022-01-10 14:20] LABS: COVID-19 PCR Negative (Negative)
== END 2022-01-10 03:15 | disposition home or self-care (01) ==
PROVIDERS: PCP Nurse Practitioner Adult Health; Visit Provider Student in an Organized Health Care Education/Training Program
DX: Z20.822 Contact with and (suspected) exposure to COVID-19 (principal); Z01.818 Encounter for other preprocedural examination
CPT/HCPCS: 36415; 80048; 85027; 87635; U0005

== ENCOUNTER 2022-01-10 03:25 | Outpatient (CLI) | payer MEDICARE, SELFPAY ==
[2022-01-10 08:42] LABS: HCT 37.7 % (36.0-46.0); HGB 12.5 g/dL (11.2-15.7); MCH 31.9 pg (27.0-33.0); MCHC 33.2 % (32.0-36.0); MCV 96 fL (80-95); Platelet Count 187 10^3/uL (130-400); RBC 3.92 10^6/uL (3.93-5.22); RDW 12.7 % (11.7-14.6); RDW-SD 44.8 fL; WBC 3.11 10^3/uL (4.4-10.8)
[2022-01-10 09:04] LABS: Anion Gap 7.1 mmol/L (3-11); BUN 12 mg/dL (7-18); CO2 27.9 mmol/L (21.0-32.0); CREATININE 0.6 mg/dL (0.55-1.02); Calcium 8.7 mg/dL (8.5-10.1); Chloride 101 mmol/L (98-107); Glucose 94 mg/dL (74-106); Potassium 4.3 mmol/L (3.5-5.1); Sodium 136 mmol/L (136-145)
== END 2022-01-10 03:26 | disposition home or self-care (01) ==
LOC: LBO 03:25
PROVIDERS: PCP Nurse Practitioner Adult Health; Visit Provider Student in an Organized Health Care Education/Training Program
DX: M25.552 Pain in left hip (principal); M16.12 Unilateral primary osteoarthritis, left hip; Z01.818 Encounter for other preprocedural examination; Z01.812 Encounter for preprocedural laboratory examination
CPT/HCPCS: 36415; 80048; 85027

== ENCOUNTER 2022-01-12 07:13 | Day surgery (SDC) | payer MEDICARE, SELFPAY ==
[2022-01-12] VITALS (8 sets, daily range): BP systolic 119–151; BP diastolic 47–89; PULSE 50–66; RESP 14–18; TEMP 36–36.7; O2SAT 93–97; BMI 20.7
--- NOTE | 2022-01-12 06:44 | W.ANESPRE ---
General Info Date of Service Date Performed: 01/12/22 Height: 5 ft 2.5 in Weight: 52.163 kg Body Mass Index (BMI): 20.7 Surgical Procedure: Operation Date: 01/12/22 10:50 Proposed Procedure Side Surgeon p Hip Total Hip Anterior Left Caesar Plaza MD Meds Allergies and Home Medications Allergies Allergy/AdvReac Type Severity Reaction Status Date / Time sertraline HCl [From Zoloft] AdvReac Mild Feels Verified 01/12/22 07:26 spacey Home Medication Medication Instructions Recorded Daily Multi-Vitamin (multivitamin) 1 ea PO DAILY 06/26/13 tretinoin 0.1 % topical cream 1 applic topical QHS PRN acne #20 09/20/19 (Retin-A) grams hydrocortisone 1 % topical cream 1 applic topical BID PRN 11/07/19 (Anti-Itch (hydrocortisone)) ibuprofen 600 mg tablet 300 - 600 mg PO TID PRN hip pain 12/16/20 #90 tabs citalopram 20 mg tablet 20 mg PO DAILY #90 tabs 08/25/21 omeprazole 20 mg capsule,delayed 20 mg PO DAILY #90 caps 08/25/21 release levothyroxine 50 mcg tablet 50 mcg PO DAILY #90 tabs 08/27/21 Current Visit Medications: Current Medications Generic Name Dose Route Start Last Admin Trade Name Freq PRN Reason Stop Dose Admin Acetaminophen 1,000 mg 01/12/22 06:00 Acetaminophen 500 Mg Tab PO 01/12/22 16:00 PREOP ELIEZER Celecoxib 400 mg 01/12/22 06:00 Celecoxib 200 Mg Cap PO 01/12/22 16:00 PREOP ELIEZER Tranexamic Acid 1,000 mg/ 60 mls @ 360 mls/hr 01/12/22 06:00 Sodium Chloride IV 01/12/22 16:00 PREOP ELIEZER Ringer's Solution 1,000 mls @ 80 mls/hr 01/12/22 06:00 IV 02/10/22 23:59 INFUSION ELIEZER Cefazolin Sodium/Dextrose 2 gm in 50 mls @ 100 mls/hr 01/12/22 06:00 Ancef Duplex IVPB 02/10/22 23:59 PREOP ELIEZER IV Miscellaneous Supplies 1 each 01/12/22 06:00 Iv Access IV 02/10/22 23:59 DIRECTED ELIEZER Sodium Chloride 0 ml 01/12/22 06:00 Normal Saline Flush 10 Ml Syr IV 02/10/22 23:59 PRN PRN Sodium Chloride 0 ml 01/12/22 06:00 Normal Saline 10 Ml Vial IJ 02/10/22 23:59 DIRECTED PRN Sterile Water 0 ml 01/12/22 06:00 Water,Injection,Sterile 10 Ml Vial IJ 02/10/22 23:59 DIRECTED PRN PFSH Active Problems Active Problems: Problem Status Onset Code COVID ~12/07/21 U07.1 Family history of abdominal aortic aneurysm (AAA) Z82.49 Generalized abdominal pain R10.84 Lumbar spinal stenosis ~2013 M48.061 Hair loss L65.9 Vitamin B12 deficiency E53.8 Hypothyroid E03.9 Forgetfulness R68.89 Microscopic hematuria R31.29 History of anal cancer ~06/2013 Z85.048 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 Partial tear of left rotator cuff M75.112 Hyperlipidemia E78.5 Insomnia G47.00 GERD (gastroesophageal reflux disease) K21.9 Degenerative joint disease of left hip M16.12 Postmenopausal atrophic vaginitis 01/12/16 N95.2 Basal cell carcinoma of skin 04/20/15 C44.91 Medical History Medical History Anal cancer (~2012) 2012 s/p chemo/XRT, invasive squamous cell CA [facility] Onc--last OV 09/26/2018--discharged from onc at 3 yrs (09/2018) [facility] Lilian Rosario MD Surg, last colo 2015 with f/u 10 years Bursitis of left shoulder Change in bowel habits Levothyroxine resolved Degenerative joint disease of right hip Ovarian cyst (~1969) Paresthesia of right leg B12 resolved Surgical History Surgical History History of hysterectomy (~1997) Total; noncancerous S/P bilateral breast implants S/P unilateral salpingo-oophorectomy pt unsure of which side per [facility] Surg hx Status post total hip replacement, right (12/03/19) Tobacco Smoking/Tobacco Use Status: Former Tobacco Use Alcohol Alcohol Intake: current Alcohol intake frequency: 0-2 drinks per day Alcohol type: beer and wine Substance Use Substance use: Rarely Substance use type: marijuana Vital Signs and Lab Results Vital Signs Most Recent Vital Signs in EMR: Temp Pulse Resp BP Pulse Ox 36.5 C 58 L 16 127/68 96 01/12/22 07:37 01/12/22 07:37 01/12/22 07:37 01/12/22 07:37 01/12/22 07:37 Lab Results Blood Type / Crossmatch: No Data to Display Complete Blood Count: White Blood Count 3.11 10^3/uL (4.4-10.8) L 01/10/22 08:33 Red Blood Count 3.92 10^6/uL (3.93-5.22) L 01/10/22 08:33 Hemoglobin 12.5 g/dL (11.2-15.7) 01/10/22 08:33 Hematocrit 37.7 % (36.0-46.0) 01/10/22 08:33 Platelet Count 187 10^3/uL (130-400) 01/10/22 08:33 Complete Metabolic Panel: Sodium Level 136 mmol/L (136-145) 01/10/22 08:33 Potassium Level 4.3 mmol/L (3.5-5.1) 01/10/22 08:33 Chloride Level 101 mmol/L (98-107) 01/10/22 08:33 Carbon Dioxide Level 27.9 mmol/L (21.0-32.0) 01/10/22 08:33 Blood Urea Nitrogen 12 mg/dL (7-18) 01/10/22 08:33 Creatinine 0.6 mg/dL (0.55-1.02) 01/10/22 08:33 Estimated GFR/1.73 m2 >= 60.00 (mL/min/1.73m2) 01/10/22 08:33 Calcium Level 8.7 mg/dL (8.5-10.1) 01/10/22 08:33 Glucose Level 94 mg/dL (74-106) 01/10/22 08:33 Liver Function Panel: No Data to Display Coagulation Panel: No Data to Display Cardiac Panel: No Data to Display Arterial Blood Gas: No Data to Display Venous Blood Gas: No Data to Display Pancreas Panel: No Data to Display Thyroid Panel: No Data to Display Infectious Disease: Coronavirus (COVID-19)(PCR) Negative (Negative) 01/10/22 08:42 Coronavirus 2019 Source Nasal/Nares 01/10/22 08:42 Blood Cultures: No Data to Display Toxicology Panel: No Data to Display Anesthesia Assessment and Plan Anesthesia History Personal History: No History of Anesthesia Complications Family History: No Family History of Anesthesia Complications Exercise Tolerance Exercise Tolerance: Metabolic Equivalents>4 Pertinent Negatives Pertinent Negatives: No Symptoms of GERD, No Major Cardiovascular Symptoms or Complaints, No Major Pulmonary Symptoms or Complaints and No History of CVA/TIA Cardiac & Pulmonary Exam Cardiac Exam: Normal S1/S2 Heart Sounds Pulmonary Exam: Clear Bilateral Breath Sounds Implantable Cardiac Device Does patient have a Pacemaker or an ICD?: No Airway Exam Known Difficult Airway: No Mallampati Class: 2 Mouth Opening: Normal (> 3cm) Thyromental Distance: Greater than 3 cm Neck Range of Motion: Full ROM Neck Circumference: Normal Teeth Condition: Normal Dentition ASA Classification ASA Score: ASA 2 Emergency Case?: No NPO Status NPO Status: NPO Clears >2 hours, Solids >8 hours Anesthesia Plan Resuscitation Status: Full Code Anesthesia Technique: Spinal Anesthesia Airway Planned: Natural Airway Monitors Used: Standard Monitors
[2022-01-12] MEDS: Acetaminophen 500 MG TAB 1000 MG PO (07:47)
[2022-01-12] MEDS: Celecoxib 200 MG CAP 400 MG PO (07:48)
[2022-01-12] MEDS: Lactated Ringers 1,000 ML 80 ML IV (08:04)
[2022-01-12] MEDS: Normal Saline Flush 10 ML SYR IV (09:24)
--- NOTE | 2022-01-12 09:24 | PDOC.DSDIS_ITS ---
Discharge Plan Disposition Patient Disposition: HOME Condition: Good Discharge Details Reason For Visit: Left OLIVIA Attending Provider: Caesar Plaza Primary Care Provider: Martha Torres Home Meds and New Rx's Prescriptions: New acetaminophen 500 mg capsule 1,000 mg PO Q8H PRN PRNQty: 90 0RF aspirin 81 mg tablet,delayed release (DR/EC) 81 mg PO BID Qty: 60 0RF ibuprofen 600 mg tablet 600 mg PO TID Qty: 90 0RF oxycodone 5 mg tablet 5 mg PO Q4H PRNQty: 18 0RF Continued tretinoin [Retin-A] 0.1 % cream 1 applic TP QHS PRN (Reason: acne) Qty: 20 0RF Rx Instructions: Acne as directed ibuprofen 600 mg tablet 300 - 600 mg PO TID PRN (Reason: hip pain) Qty: 90 3RF Hold Instructions: Home Medication placed on hold at Doctor's office multivitamin [Daily Multi-Vitamin] 1 EACH tablet 1 ea PO DAILY hydrocortisone [Anti-Itch (HC)] 1 % cream 1 applic TP BID PRN Rx Instructions: nasal area per note, Derm 11/07/19, minimize usage cgc citalopram 20 mg tablet 20 mg PO DAILY Qty: 90 3RF omeprazole 20 mg capsule,delayed release(DR/EC) 20 mg PO DAILY Qty: 90 1RF Rx Instructions: Take on empty stomach 30-min separate from food/fluids for heartburn levothyroxine 50 mcg tablet 50 mcg PO DAILY Qty: 90 3RF Rx Instructions: Take on empty stomach in AM, 30-min to other meds Discharge Instructions Additional Instructions: Total Hip Discharge Instructions Activity: The most important activity is to walk. You should try to take short walks a few times a day. You have no restrictions on movement or positioning, but do not try to force what you do. You will find some stiffness and weakness with hip flexion (lifting your knee). Do not try to strengthen this too early, continue to practice walking and stairs and this will come. - Outpatient physical therapy can be helpful to help return you to a normal gait and improve your flexibility and strength. This can start around 2 weeks. For some patients, it?s not necessary. Usually this is determined at the time of discharge or at the first post-operative visit. - You should wear the VALDO hose on both legs for 2 weeks. Dressing: Keep the surgical dressing in place for at least one week. After the first week it may be removed and replace with light gauze and tape or nothing. It may get wet after 3 days but avoid soaking the dressing. If it gets wet, just lightly pat dry. It is important to always keep some gauze between skin f olds, especially when you are sitting. Spend some time with the wound exposed when you are lying flat as the incision does wrinkle onto itself. Medications: - You should take Tylenol and an anti-inflammatory Ibuprofen as your primary pain control medications. Please call the office for another alternative (Celebrex or Naproxen/Aleve). - You have been prescribed a stronger pain medication Oxycodone for breakthrough pain, take as needed as prescribed. - Continue with your stomach acid reduction agent Omeprazole to help reduce stomach acid and reflux. - You will be taking Aspirin 81mg twice a day for DVT prevention unless instructed otherwise. - If you have constipation you should take Colace or Miralax (both [id number]). It takes most people 3-4 days to have a bowel movement. Follow-up: 2 weeks If you have any acute concerns or questions, please do not hesitate to contact the office at [phone]. You may contact Dr. Plaza with any questions after hours through the hospital at [phone] or on his cell phone at [phone]. Referrals: Caesar Plaza MD [ [facility] STAFF PHYSICIAN] - Equipment/Supplies: Walker Activity:: Activity as Tolerated Remove Dressings/Wound Care:: Do Not Remove Shower/Bathe:: 72 hours Diet:: As Tolerated Discharge Orders Discharge Orders: Discharge Order (Routine); Ordered 01/12/22 Ordered By: Chantelle Doyle DS: Diagnosis Discharge Diagnosis (1) Degenerative joint disease of left hip: Status: Chronic
[2022-01-12] MEDS: ceFAZolin 2 GM/50 ML BAG IVPB (10:22)
--- NOTE | 2022-01-12 11:15 | DI.RAD_ITS ---
Exam(s) XR HIP LT IN OR EXAM: XR HIP LT IN OR CLINICAL HISTORY: Degenerative joint disease of left hip TECHNIQUE: 2D and realtime digital imaging was performed. COMPARISON: No exams were available for comparison FINDINGS: C-arm fluoroscopy was utilized by Dr. Plaza during placement of left hip prosthesis. Hard copies show femoral and acetabular components in good position. IMPRESSION: RADIATION DOSE DELIVERED: Prachir=1.47 mGy
--- NOTE | 2022-01-12 11:20 | ROE_ITS ---
Date of service: 01/12/22 Time of Service: 11:20 Operative Note Operative Note DATE OF PROCEDURE: 01/12/22 PRE-OP DIAGNOSIS: Left Hip Osteoarthritis POST-OP DIAGNOSIS: same PROCEDURE: Left Anterior Total Hip Arthroplasty with Intraoperative Navigation SURGEON: Caesar Plaza SUSTAINABILITY PROJECT COORDINATOR: Chantelle Doyle ANESTHESIA TYPE: Spinal Refer to Anesthesia Record ESTIMATED BLOOD LOSS: 100 PATHOLOGY: none sent TOURNIQUET TIME: 0 COMPLICATIONS: None Patient was transported to: PACU Patient's condition: stable Implants: 1. Depuy Lafayette Acetabular Component, 52mm 2. Depuy Acetabular Liner, 40x05uu 3. Depuy Corail Standard Collared Femoral Stem, Size 11 4. Depuy Altrx Ceramic Femoral Head, Size 36+5mm Indications: I have seen Meghana in clinic for symptoms of hip arthritis, confirmed with radiographic findings. Meghana has exhausted nonoperative methods and was having significant limitations in daily function and desired better function and less pain. I discussed the technical details of a hip replacement. I explained the risks of the procedure to include, but not limited to, bleeding, infection, pain, stiffness, fracture, damage to nerves and vessels, damage to muscles and tendons, loosening, instability, leg length inequality, need for repeat procedure, blood clot and cardiopulmonary demise. Despite these risks, she elected to proceed. Findings: There was significant signs of arthritis throughout the hip. Procedure Description: Meghana was greeted in the preoperative holding area where the correct side was identified and marked. The consent was reviewed with the patient and signed. The history and physical was updated. All questions were answered. She was taken back to the operating room. A spinal anesthestic was then ad ministered. The feet were wrapped with cast padding and Coban and then placed into the boot liners and then into the boots. Care was taken to protect the skin and make sure the heels were fully down and the boots were stable. The patient was then positioned onto the HANA table. Both legs were held in a neutral position. SCDs were applied. The patient was then slid down onto a peroneal post. Prophylactic antibiotics in the form of Cefazolin were administered. 1g of Tranxemic Acid was given intravenously within 30 minutes of incision. The left leg was then prepped with Chloraprep and draped in a standard fashion. A second prep with Chloraprep was performed prior to placement of a shower-curtain type drape with Iodine impregnated skin protection. A timeout to confirm correct identity, side and site, procedure, allergies, anesthesia, and medical concerns was performed. An obliquely oriented incision was made starting lateral to the ASIS and running distal over the Tensor Fascia Carli (TFL) muscle belly toward the fibular head, approximately 10cm. The skin and soft tissue was dissected sharply, through Palak?s fascia, and to the fascia of the TFL. With the fascia and superior border of the IT band identified, the fascia was incised with a new knife just above any perforators from the IT band. The TFL muscle belly was bluntly dissected away from the fascia and moved laterally. The fat between TFL and rectus was identified to ensure the dissection was not within the TFL. Blunt dissection created space between abductors and the capsule and retractor was placed over the lateral femoral neck. The fibers of the rectus femoris tendon were identified and these were freed from the anterior capsule. A second cobra retractor was placed around the medial femoral neck. The TFL was further retracted laterally to show the deep fascia. Careful dissection through this layer identified three main crossing vessels of the lateral femoral circumflex. These were cauterized in multiple locations and then cut without any noticeable bleeding. The TFL was further released bluntly from the deep fascia to expose anterior hip capsule and fat The Eb orthopaedic retractor was then placed beneath the TFL and against sartorius and medial soft tissues to protect and retract the soft tissues. A T-capsulotomy was then performed starting at the superior lateral acetabulum and moving distally to the intertrochanteric ridge. These capsular flaps were tagged with a No. 1 Ethibond and elevated from within. The capsular flaps were released to the shoulder of the lateral neck and to the lesser trochanter to give excellent visualization of the proximal femur. A neck osteotomy was performed using an oscillating saw based on preoperative templates. This cut started in the shoulder and of the lateral neck and exited medially. The saw was at all times directed medially to avoid injury to the greater trochanter. Gross traction was applied to the leg and the osteotomy opened. The femoral head was removed with a corkscrew, making sure to protect the TFL on its exit. Traction was released after head removal. This was measured on the back table to determine the starting reamer size. Portions of the rectus obscuring visualization were minimally elevated off the superior acetabulum. An anterior retractor was placed over the anterior wall between capsule and labrum and attached to the Gripper retraction system. The femur was rotated to 90 degrees and medial capsule was fully released until the lesser trochanter was palpable and visible; the femur was returned to 30 degrees. A posterior retractor was placed similarly between capsule and labrum. This provided excellent visualization. The contents of the cotyloid fossa were removed with electrocautery and the labrum was removed with a knife. There was a notable floor osteophyte. Acetabular reaming began with a 46mm reamer. This first reaming was directed anterior to posterior and medial to get down to the true floor. This was inspected and reamed until the true floor was reached. The anterior retractor was then released and entry and exit was provided by traction on the capsular fl aps. I then reamed sequentially up to a 52mm reamer where good fit was obtained. The larger reamers were oriented based on anatomical reference of the anterior and lateral benson to ensure proper abduction and anteversion. Positioning and size was confirmed with the fluoroscopy. A 52mm Depuy Lafayette acetabular component was selected. The acetabulum was reamed around the periphery with the selected acetabular size to prevent a rim fit. The deep tissues were irrigated. The acetabular component was then impacted in a position of about 40-45 degrees of abduction and 15-20 degrees of anteversion, using the patient?s anatomy as the ultimate landmark. Fluoroscopy was used to confirm this. There was excellent cement production plant operator of the acetabular component and the inserting handle was removed. The acetabular liner, Depuy 65m53th polyethylene liner, was inserted and lined up with the tines of the acetabular component. There was no soft tissue interposition. The liner was then impacted into position and confirmed to be well-seated. A portion of the kirsten-articular cocktail was then injected around the acetabulum into the capsule and periosteum. This cocktail consisted of 123mg of Ropivacaine, 0.25mg of Epinephrine, 0.04mg of Clonidine, and 15mg of Ketorolac, diluted to 50cc. The leg was rotated to 120 degrees. Any remaining medial capsule was released until the lesser trochanter was easily palpable. A retractor was placed medially. The lateral capsule was further released into the shoulder to allow access to the greater trochanter. A Finch retractor was placed over the greater trochanter which allowed the trochanter to flip in front of the capsule for excellent exposure. The leg was brought down into maximal extension and 20 degrees of adduction while ensuring there was no impingement on the acetabulum. Any remnant capsule within the trochanter was released. Piriformis and obturator externis were identified and protected. There was excellent access to the proximal femur. The lateral neck remnant was removed with a rongeur. A blunt canal probe was used to identify the canal and trajectory for later broaching. A box osteotome initiated the broach course. A small curved rasp and a curved curette were used to work laterally. Broaching then began with a size 8 Corail broach. This was inserted manually around the trochanter and into the canal before mallet blows. The broach was seated to a few millimeters below the cut level based on the neck cut and the preoperative template. Sequential broaching was continued with the PinoyTravel pneumatic broaching device until a tight fit was obtained with good rotational control of the femur. A trial standard neck was inserted along with a +5 trial head. The leg was brought out of extension and adduction and then reduced with traction and internal rotation. The leg was stable anteriorly in a position of 30 degrees of extension and 90 degrees of external rotation. Fluoroscopy was used to ensure there was no fracture and the stem was seated well. Leg lengths were checked with an AP pelvis and pelvic reference points. GreatCall navigation system was used to confirm appropriate positioning and leg length and offset with the goal of minimal offset change and leg lengthening of about 4- 5mm. Once content with the desired offset and leg lengths, the leg was brought back into extension, external rotation and adduction. The periosteum and surrounding tissue was injected with remaining portion of the kirsten-articular cocktail. The proximal femur was irrigated as well as the deep tissues. The Depuy Corail standard collared stem, size 11, was then manually inserted into the proximal femur making sure to control rotation. It was then malleted into position with light blows, giving breaks to allow bone expansion and decrease risk of fracture. The selected Depuy Altrx Ceramic Head, size 36+5mm, was then placed onto the clean and dry trunnion and secured with impaction onto the tapered fit. The leg was brought back out of extension and adduction and reduced with traction and internal rotation. Stability was confirmed with no shuck at 90 degrees of external rotation and 30 degrees of extension. No impingement through range of motion arc. Final x-ray images were obtained with fluoroscopy to confirm adequate positioning and no intraoperative fracture. The deep tissues were thoroughly irrigated with Surgiphor, betadine solution. This was allowed to sit in the wound for 3 minutes before being thoroughly irrigated out with normal saline. The capsule was then reapproximated with the previously placed Ethibond sutures. The TFL fascia was finally closed with a No. 2 Stratafix, barbed suture. Deep tissues were then reapproximated with 0 Vicryl and a running 2-0 Vicryl. The skin was closed with a running 4-0 Monocryl in a subcuticular fashion. This was reinforced with skin glue. A Mepilex silver dressing was applied. At the end of the case, all counts were correct. Meghana was transferred to the hospital bed without difficulty and suffering no apparent complication. Meghana has a good prognosis. Physical therapy will start today and without restrictions, weight-bearing as tolerated. Aspirin 81mg BID will be used for DVT prophylaxis.
[2022-01-12] MEDS: oxyCODONE 5 MG TAB PO (12:58)
--- NOTE | 2022-01-12 14:44 | W.ANESPOSTOP ---
Postoperative Evaluation Date, Time and Location Date Performed: 01/12/22 Time Performed: 14:44 Patient Location: Day Surgery Unit Vital Signs Most Recent Imported Vital Signs: Most Recent Vital Signs Temp Pulse Resp BP Pulse Ox 36.7 C 62 16 140/81 97 01/12/22 13:37 01/12/22 13:37 01/12/22 13:37 01/12/22 13:37 01/12/22 13:37 Pain Score Most Recent Pain Score: Most Recent Pain Score Pain Level 4 01/12/22 13:37 Assessment Mental Status: Awake (Alert & Oriented to Patient Baseline) Airway and Respiratory Function: Patent airway with normal (patient baseline) respiratory exam Cardiovascular Function: Hemodynamically Stable Hydration Status: Adequately Hydrated Nausea & Vomiting: No Nausea or Vomiting Pain: Pt. Denies Any Pain Peripheral Nerve Block: Patient did not receive a nerve block
--- NOTE | 2022-01-12 16:17 | IN_ITS ---
PT Notes Visit Reasons: Left OLIVIA Inpatient Physical Therapy Evaluation Date: 01/12/2022 Referring Doctor: Caesar Plaza MD PT Orders: PT CONSULT: Status post left OLIVIA Precautions: Fall Patient Profile/Admitting Diagnosis: 66-year-old female with osteoarthritis of the left hip status post OLIVIA earlier today PMHX: edical History? Anal cancer (~2012) 2013 s/p chemo/XRT, [place] [facility] [place] 09/26/2018--discharged from onc at 5 yrs (09/2018) [facility] [place]ian Rosario MD Surg, last colo 2015 with f/u 10 yearsBursitis of left shoulder Change in bowel habits Levothyroxine resolvedDegenerative joint disease of right hip Ovarian cyst (~1969) Paresthesia of right leg B12 resolved Surgical History? History of hysterectomy (~1997) Total; noncancerousS/P bilateral breast implants S/P unilateral salpingo-oophorectomy pt unsure of which [place] [facility] [place] hx[place] post total hip replacement, right (12/03/19) Social History/Home Situation: Lives in a private home with her significant other in her bed and bathroom are on the second floor with 14 steps leading to. She has a railing part way up. Her bathroom has a walk-in shower with a lower lip and no grab bars but has a flexible shower hose Current Functional Limitations: Was independent with all ADLs Equipment Owned/DME: [facility] Subjective: Pleasant and cooperative, with initial complaints of discomfort throughout the posterior lateral aspect of the left hip which resolved after ambulation. Also felt that her left leg was longer than the right when ambulating Objective: General Observation: No abnormal pain behavior noted Mental Status: Alert and oriented x3 Pain: Initially complained of some posterior lateral left hip discomfort. Vital Signs: Pulse of 60 bpm following ambulation ROM: Pain-free range of motion throughout. Her active assistive left hip flexion was 90 degrees and rotation at 30 degrees. Strength: Strength is generally rated 5/5 throughout than her left hip musculature at 3/5 and quads at 4/5 Neuro: Intact Bed Mobility/Transfers: Independent with assuming the supine to sitting to standing positions Gait: Ambulated with an FW W with weightbearing as tolerated left lower extremity with standby supervision and normal gait mechanics. She was able to climb 3 steps with appropriate technique Balance: Static Sitting: Stable Dynamic Sitting: Stable Static Standing: Stable Dynamic Standing: Stable Special Tests: In the supine position, her medial malleoli are symmetrical as well as her ASIS Mobility Limitations Standardized Measure [facility] AM-PAC 6 clicks Basic Mobility Inpatient Short Form: Raw Score: 22 standardized Score: 5.43 CMS Score: 20.91% Informed Consent/Education: Patient instructed in purpose of PT consult and plan of care. Assessment: Patient is a 66year old female referred to physical therapy services with the diagnosis of osteoarthritis left hip status post OLIVIA. Patient presents with clinical signs and symptoms consistent with this diagnosis, as demonstrated by the following impairment level findings: . Use of wheeled walker with ambulation. Patient is assessed as a Low 78048 complexity based on the following: History: See comorbidities and social history Examination: See above for functional imitations impairments Presentation: Stable Decision Making: Low complexity based on her clinical findings Goals: All goals been met which consisted of independent bed mobility activities as well as independent ambulation with an FW W for greater than 100 feet along with stair climbing Plan of Care/Treatment Plan: Today session consisted of the evaluation, patient education consisting of quad and gluteal sets and ankle pumping frequently at home, assessing her bed mo bility activities, and instructing in proper gait mechanics with use of FWW, weightbearing as tolerated along with stair climbing DISCHARGE RECOMMENDATIONS: Home with no services TREATMENT CODE/TIME: 9716 minutes Disclaimer: This note was created using [employer] voice recognition software. It was reviewed for major content. However, there may be multiple small discrepancies and errors due to the voice recognition aspects of the software.
== END 2022-01-12 15:15 | disposition home or self-care (01) ==
PROVIDERS: PCP Nurse Practitioner Adult Health; Visit Provider Student in an Organized Health Care Education/Training Program
PROC: (CPT 27130; principal; 2022-01-12 10:30)
DX: M16.12 Unilateral primary osteoarthritis, left hip (principal); K21.9 Gastro-esophageal reflux disease without esophagitis; E78.5 Hyperlipidemia, unspecified; E03.9 Hypothyroidism, unspecified; D53.8 Other specified nutritional anemias
CPT/HCPCS: 20985; 27130; C1776; 97162; 73501; J0690; J1100; J2250; J2405; J2704

== ENCOUNTER 2022-01-27 10:45 | Outpatient (CLI) | payer MEDICARE, SELFPAY ==
--- NOTE | 2022-01-27 10:00 | DI.RAD_ITS ---
Exam(s) XR HIP LT COMPLETE AP PELVIS EXAM: XR HIP LT COMPLETE AP PELVIS CLINICAL HISTORY: 1st post op L OLIVIA. TECHNIQUE: 2D digital imaging was performed. Two images were obtained. AP and lateral views were ob tained. COMPARISON: CR XR HIP LT COMPLETE AP PELVIS from 08/16/2021 XA XR HIP LT IN OR from 01/12/2022 FINDINGS: BONES: There are stable post operative changes present. No dislocation is seen. On the lateral view there is a lucency seen through the posterior aspect of the greater trochanter which may represent a small nondisplaced fracture. JOINTS: The orthopedic hardware is in good position. SOFT TISSUE: Normal. IMPRESSION: Left THR. DATA REPOSITORY: RADIATION DOSE DELIVERED:
== END 2022-01-27 10:46 | disposition home or self-care (01) ==
LOC: DIORS 10:45
PROVIDERS: PCP Nurse Practitioner Adult Health; Visit Provider Physician Assistant Surgical
DX: Z96.642 Presence of left artificial hip joint (principal); Z47.1 Aftercare following joint replacement surgery
CPT/HCPCS: 73502

== ENCOUNTER 2022-02-28 15:38 | Outpatient (CLI) | payer MEDICARE, SELFPAY ==
--- NOTE | 2022-02-28 15:00 | DI.RAD_ITS ---
Exam(s) XR HIP LT AP LAT ONLY EXAM: XR HIP LT AP LAT ONLY CLINICAL HISTORY: pain. TECHNIQUE: 2D digital imaging was performed. COMPARISON: CR XR HIP LT COMPLETE AP PELVIS from 01/27/2022 FINDINGS: Two views, compared to 01/27/2022 Stable position and alignment of the components of the left hip prosthesis. No fracture or loosening evident. IMPRESSION: DATA REPOSITORY: RADIATION DOSE DELIVERED:
== END 2022-02-28 15:39 | disposition home or self-care (01) ==
LOC: DIORS 15:39
PROVIDERS: PCP Nurse Practitioner Adult Health; Referring Provider Nurse Practitioner Adult Health; Visit Provider Physician Assistant Surgical
DX: Z96.642 Presence of left artificial hip joint (principal); Z47.1 Aftercare following joint replacement surgery
CPT/HCPCS: 73502

== ENCOUNTER → 2022-03-28 15:16 | Outpatient (BNVA) | payer MEDICARE, SELFPAY | PROVIDERS: PCP Nurse Practitioner Adult Health; Referring Provider Nurse Practitioner Adult Health; Visit Provider Physician Assistant Surgical | DX: Z47.1 Aftercare following joint replacement surgery (principal); Z96.642 Presence of left artificial hip joint; M48.061 Spinal stenosis, lumbar region without neurogenic claudication ==

== ENCOUNTER → 2022-04-21 02:02 | Outpatient (CLI) | payer MEDICARE, SELFPAY ==
--- NOTE | 2022-04-21 08:00 | DI.MRI_ITS ---
Exam(s) MR LUMBAR SPINE WO EXAM: MR LUMBAR SPINE WO CLINICAL HISTORY: PAIN,lumbar spinal stenosis, [id number]. TECHNIQUE: Multiplanar multisequence MRI was performed. COMPARISON: MR MRI - LUMBAR SPINE WO CONTRAST from 05/30/2014 FINDINGS: MR examination of the lumbosacral spine was performed according to the usual protocol. Note is made of Kristin discal vertebral signal changes most marked at L1-2 and L5-S1 consistent with di sc degeneration. No other significant bony signal abnormality seen. There are moderate hypertrophic degenerative changes seen involving the facet joints throughout the lumbar region. The conus medullaris appears intact. Apart from mild disc bulges, there are no significant findings from the T10-11 level through the T12-L1 level. At L1-2, there is a mild disc bulge. No disc herniation, central canal spinal stenosis, or neural fo raminal stenosis. At L2-3, there is a mild disc bulge. No disc herniation, central canal spinal stenosis, or neural fo raminal stenosis. At L3-4 there is a mild central canal spinal stenosis secondary to disc bulge and facet hypertrophic changes. No neural foraminal stenosis or disc herniation. At L4-5 there is a mild pseudo spondylolisthesis. There is no disc herniation, central canal spinal stenosis, or neural foraminal stenosis. At L5-S1, there is a right paracentral/lateral disc herniation. This is causes right neural foramina l stenosis. No central canal spinal stenosis. The findings at L5-S1 probably not significantly silva ged from prior lumbar spine MRI of May 30, 2014. IMPRESSION: Degenerative changes as described above. Mild central canal spinal stenosis at L4-5. Small right pa racentral/lateral disc herniation at L5-S1 causing right neural foraminal narrowing. Little if any interval change in appearance comparison with prior MR examination of 2013. DATA REPOSITORY:
== END ==
PROVIDERS: PCP Nurse Practitioner Adult Health; Visit Provider Student in an Organized Health Care Education/Training Program
DX: M48.061 Spinal stenosis, lumbar region without neurogenic claudication (principal); M51.26 Other intervertebral disc displacement, lumbar region; M51.27 Other intervertebral disc displacement, lumbosacral region
CPT/HCPCS: 72148

== ENCOUNTER 2022-06-22 12:32 | Outpatient (CLI) | payer MEDICARE, SELFPAY ==
--- NOTE | 2022-06-22 06:00 | DI.RAD_ITS ---
Exam(s) XR PAIN CLINIC LUMBAR SP 2V EXAM: XR PAIN CLINIC LUMBAR SP 2V CLINICAL HISTORY: Dx: Lumbar Radiculopathy TECHNIQUE: 2D and realtime digital imaging was performed. COMPARISON: No exams were available for comparison FINDINGS: C-arm fluoroscopy was utilized by Dr. Mohan. Please see the procedure note. Hard copy shows injectio n adjacent to what appears to be L5-S1 facet joint on the right. IMPRESSION: RADIATION DOSE DELIVERED: rober Velarde=7.71 mGy
[2022-06-22 12:40] VITALS: BP 134/76; PULSE 69; RESP 20; TEMP 37; O2SAT 96
[2022-06-22] MEDS: Dexamethasone Sod. Phos./Pres-Free 10 MG/ML VIAL IJ (13:38)
[2022-06-22] MEDS: Omnipaque 240 MG/ML 50 ML BTL IJ (13:39)
[2022-06-22 13:40] VITALS: BP 147/70; PULSE 62; RESP 17; O2SAT 98
--- NOTE | 2022-06-22 15:00 | PDOC.PAIN ---
Date of service: 06/22/22 Time of Service: 17:00 Pain Clinic Procedure Note Procedure Note Procedure Note: LUMBAR / SACRAL TRANSFORAMINAL INJECTION Meghana Bautista has been referred to the [facility] for a transforaminal nerve root block and steroid injection. COMMENTS: He was previously evaluated. He has pain radiating down the right L5 nerve root. His preprocedure pain VAS is 7/10. Dx: Lumbosacral radiculopathy Patient was interviewed and the medical record reviewed. There were no medical, pharmacologic, radiographic or other structural contraindications to attempting fluoroscopically guided transforaminal nerve root block and epidural steroid injection. Risks and expected side effects as well as potential benefit of the procedure were reviewed and voiced concerns addressed. The printed consent form was signed and witnessed. Standard time-out procedure was performed. Patient was placed in the prone position on the fluoroscopy table and automated blood pressure cuff and pulse oximeter applied. Fluoroscopy was utilized to identify the right L5 neural foramen between L5 and S1. A skin caroline was made for the needle insertion site. A Chlorhexadine prep was carried out, and sterile drapes were applied. Local anesthesia was achieved in the skin and subcutaneous tissues. A 22 gauge curved tip spinal needle was then inserted, advanced with fluoroscopic guidance into the neural foramen, confirmed on the lateral view. After negative aspiration, 2 ml of Omnipaque 240 was injected confirming position in A/P and lateral views. This showed a good spread of dye transforaminally into the epidural space. There was no vascular update with contrast injection under continuous fluoroscopy and digital substraction. 15 mg of Dexamethasone was injected, followed by 0.5 ml of 1% Xylocaine flush for the nerve root block, as well. There was no unusual discomfort expressed.The needle was withdrawn. The patient tolerated the procedure well. A Band-Aid was applied. Vital signs were stable throughout the procedure and were as recorded in nursing records. If given, dosages of intravenous drugs for anxiolysis and analgesia were documented in nursing records. Follow up plans and appointments were discussed. Post procedure instruction was given as documented in nursing records and patient was discharged in the care of an identified mobile lounge driver. COMMENTS:Post-procedure pain VAS was 2/10. Mike Mohan DO, MPH [facility] CC: Martha Torres APRN
== END 2022-06-22 12:33 | disposition home or self-care (01) ==
LOC: PC 12:32
PROVIDERS: PCP Nurse Practitioner Adult Health; Visit Provider Preventive Medicine Occupational Medicine
DX: M54.17 Radiculopathy, lumbosacral region (principal); M54.50 Low back pain, unspecified
CPT/HCPCS: 64483; 72100; Q9967

== ENCOUNTER 2022-07-25 03:25 | Outpatient (CLI) | payer MEDICARE, SELFPAY ==
[2022-07-25 08:27] LABS: Abs Immature Grans 0.02 10^3/uL (0.0-0.06); Absolute Basophil Count 0.01 10^3/uL (0.0-0.2); Absolute Eosinophil Count 0.05 10^3/uL (0.0-0.7); Absolute Lymphocyte Count 1.41 10^3/uL (1.2-3.4); Absolute Monocyte Count 1.63 10^3/uL (0.1-0.8); Absolute Neutrophil Count 1.19 10^3/uL (1.2-6.7); Basophils % 0.2; Eosinophils % 1.2; HCT 41.8 % (36.0-46.0); HGB 13.5 g/dL (11.2-15.7); Immature Grans % 0.5; Lymphocytes % 32.7; MCH 31.5 pg (27.0-33.0); MCHC 32.3 % (32.0-36.0); MCV 98 fL (80-95); MPV 8.8 fL (8.0-11.0); Monocytes % 37.8; Neutrophils % 27.6; Platelet Count 197 10^3/uL (130-400); RBC 4.28 10^6/uL (3.93-5.22); RDW 12.6 % (11.7-14.6); RDW-SD 45.3 fL; WBC 4.31 10^3/uL (4.4-10.8)
[2022-07-25 08:46] LABS: Diff Comment Diff Reviewed; RBC Morphology Normal
[2022-07-25 09:19] LABS: Anion Gap 4.7 mmol/L (3-11); BUN 8 mg/dL (7-18); CO2 32.3 mmol/L (21.0-32.0); CREATININE 0.7 mg/dL (0.55-1.02); Calcium 9.1 mg/dL (8.5-10.1); Calculated LDL 134 mg/dL (<100); Chloride 101 mmol/L (98-107); Cholesterol 247 mg/dL (<200); Estimated GFR 93.56 (mL/min/1.73m2); Glucose 100 mg/dL (74-106); HDL Cholesterol 100 mg/dL (40-60); Potassium 3.6 mmol/L (3.5-5.1); Sodium 138 mmol/L (136-145); Triglyceride 67 mg/dL (<150); Vitamin B12 540 pg/mL (193-986)
== END 2022-07-25 03:26 | disposition home or self-care (01) ==
LOC: LBO 03:25
PROVIDERS: PCP Nurse Practitioner Adult Health; Visit Provider Nurse Practitioner Adult Health
DX: E03.9 Hypothyroidism, unspecified (principal); E78.5 Hyperlipidemia, unspecified; E53.8 Deficiency of other specified B group vitamins; R53.83 Other fatigue
CPT/HCPCS: 36415; 80048; 80061; 82607; 84443; 85025

== ENCOUNTER 2022-09-30 00:35 | Outpatient (CLI) | payer MEDICARE, SELFPAY ==
--- NOTE | 2022-09-30 | DI.RAD_ITS ---
Exam(s) XR LUMBAR SPINE FLEX/EXT ONLY EXAM: XR LUMBAR SPINE FLEX/EXT ONLY CLINICAL HISTORY: SPONDYLOLISTHESIS,ASSESS FOR MOVEMENT SLIP L4-5,SPONDYLOLISTHESIS,DDD. TECHNIQUE: 2D digital imaging was performed of the lumbar spine. Two images were obtained. Lateral flexion and extension views were obtained. COMPARISON: CR XR LUMBAR SPINE COMPLETE from 08/16/2021 FINDINGS: BONES: No fracture or destructive lesion. Endplate osteophytes are seen at multiple levels of the lum bar spine. Degenerative changes of the facets are seen at L4-5 and L5-S1. DISKS: There is disc space narrowing at L1-L2, L4-L5 and L5-S1. ALIGNMENT: There is grade 1 spondylolisthesis of L4 on L5. This does not change with flexion or exte nsion. SOFT TISSUE: Normal. IMPRESSION: 1. Stable grade 1 spondylolisthesis of L4 on L5. 2. Degenerative changes in the lumbar spine. DATA REPOSITORY: RADIATION DOSE DELIVERED:
== END 2022-09-30 00:55 ==
LOC: DI 00:35
PROVIDERS: PCP Nurse Practitioner Adult Health; Visit Provider Physician Assistant Medical
DX: M43.16 Spondylolisthesis, lumbar region (principal); M47.27 Other spondylosis with radiculopathy, lumbosacral region; M51.17 Intervertebral disc disorders with radiculopathy, lumbosacral region; M51.16 Intervertebral disc disorders with radiculopathy, lumbar region
CPT/HCPCS: 72120

== ENCOUNTER → 2022-11-14 09:16 | Outpatient (BNVA) | payer MEDICARE, SELFPAY | PROVIDERS: PCP Nurse Practitioner Adult Health; Referring Provider Nurse Practitioner Adult Health; Visit Provider Student in an Organized Health Care Education/Training Program | DX: M75.52 Bursitis of left shoulder (principal) | CPT/HCPCS: 20610; J1040 ==

== ENCOUNTER 2022-11-24 08:14 | Outpatient (CLI) | payer MEDICARE, SELFPAY | END 2022-11-24 08:15 | disposition home or self-care (01) | LOC: DI.KIM 08:15 | PROVIDERS: PCP Nurse Practitioner Adult Health; Visit Provider Nurse Practitioner | DX: Z01.818 Encounter for other preprocedural examination (principal) | CPT/HCPCS: 93010 ==

== ENCOUNTER 2022-11-29 14:10 | Outpatient (CLI) | payer MEDICARE, SELFPAY ==
--- NOTE | 2022-11-29 14:00 | RT.EKG_ITS ---
APPROVED REPORT Exam: Resting ECG Reason for Exam: pre-op Patient Location: O HR:50 bpm ECG Measurements Heart Rate 50 AXIS [place] 193 P 67 QRSd 84 QRS 45 QT 447 T 58 QTc 408 Conclusion Sinus rhythm...normal P axis, V-rate 50- 99 Normal Electrocardiogram
== END 2022-11-29 14:11 | disposition home or self-care (01) ==
LOC: DI.KIM 14:11
PROVIDERS: PCP Nurse Practitioner Adult Health; Visit Provider Nurse Practitioner
DX: Z01.818 Encounter for other preprocedural examination (principal)
CPT/HCPCS: 93010

== ENCOUNTER 2023-08-11 01:55 | Outpatient (CLI) | payer MEDICARE, SELFPAY ==
[2023-08-11 10:04] LABS: Anion Gap 7.3 mmol/L (3-11); BUN 8 mg/dL (7-18); CO2 30.7 mmol/L (21.0-32.0); CREATININE 0.7 mg/dL (0.55-1.02); Calcium 9.6 mg/dL (8.5-10.1); Calculated LDL 126 mg/dL (<100); Chloride 100 mmol/L (98-107); Cholesterol 237 mg/dL (<200); Estimated GFR 92.98 (mL/min/1.73m2); Glucose 96 mg/dL (74-106); HDL Cholesterol 98 mg/dL (40-60); Potassium 4.1 mmol/L (3.5-5.1); Sodium 138 mmol/L (136-145); TSH (W/Ref FT4) 2.76 uIU/mL (0.36-3.74); Triglyceride 65 mg/dL (<150); Vitamin B12 637 pg/mL (193-986)
== END 2023-08-11 01:56 | disposition home or self-care (01) ==
LOC: LBO 01:55
PROVIDERS: PCP Nurse Practitioner Adult Health; Visit Provider Nurse Practitioner Adult Health
DX: C44.91 Basal cell carcinoma of skin, unspecified (principal); E78.5 Hyperlipidemia, unspecified; G47.00 Insomnia, unspecified
CPT/HCPCS: 36415; 80048; 80061; 82607; 84443

== ENCOUNTER 2023-08-18 09:39 | Outpatient (CLI) | payer MEDICARE, SELFPAY ==
--- NOTE | 2023-08-18 09:15 | DI.RAD_ITS ---
Exam(s) XR HIP LT AP LAT ONLY EXAM: XR HIP LT AP LAT ONLY CLINICAL HISTORY: left hip pain. TECHNIQUE: 2D digital imaging was performed. Two images were obtained. AP and lateral views were ob tained. COMPARISON: CR XR HIP LT AP LAT ONLY from 02/28/2022 FINDINGS: BONES: There are stable post operative changes of a left total hip replacement present. No fracture or dislocation. JOINTS: The orthopedic hardware is in good position. No evidence of hardware loosening. SOFT TISSUE: Normal. IMPRESSION: Stable postoperative changes. DATA REPOSITORY: RADIATION DOSE DELIVERED:
== END 2023-08-18 09:40 | disposition home or self-care (01) ==
LOC: DIORS 09:39
PROVIDERS: PCP Nurse Practitioner Adult Health; Referring Provider Nurse Practitioner Adult Health; Visit Provider Student in an Organized Health Care Education/Training Program
DX: Z96.642 Presence of left artificial hip joint (principal); Z47.1 Aftercare following joint replacement surgery; S76.812A Strain of other specified muscles, fascia and tendons at thigh level, left thigh, initial encounter; X58.XXXA Exposure to other specified factors, initial encounter
CPT/HCPCS: 99213; 73502

== ENCOUNTER → 2023-09-07 14:50 | Outpatient (BNVA) | payer MEDICARE, SELFPAY | PROVIDERS: PCP Nurse Practitioner Adult Health; Referring Provider Nurse Practitioner Adult Health; Visit Provider Student in an Organized Health Care Education/Training Program | DX: X58.XXXA Exposure to other specified factors, initial encounter (principal); S76.812A Strain of other specified muscles, fascia and tendons at thigh level, left thigh, initial encounter | CPT/HCPCS: 20611; J1030 ==

== ENCOUNTER 2024-07-18 04:04 | Outpatient (CLI) | payer MEDICARE, SELFPAY ==
[2024-07-18 08:15] LABS: Abs Immature Grans 0.02 10^3/uL (0.0-0.06); Absolute Basophil Count 0.02 10^3/uL (0.0-0.2); Absolute Eosinophil Count 0.05 10^3/uL (0.0-0.7); Absolute Lymphocyte Count 1.38 10^3/uL (1.2-3.4); Absolute Monocyte Count 1.71 10^3/uL (0.1-0.8); Absolute Neutrophil Count 1.22 10^3/uL (1.2-6.7); Basophils % 0.5 %; Eosinophils % 1.1 %; HCT 42.2 % (36.0-46.0); HGB 13.7 g/dL (11.2-15.7); Immature Grans % 0.5 %; Lymphocytes % 31.4 %; MCH 31.7 pg (27.0-33.0); MCHC 32.5 % (32.0-36.0); MCV 98 fL (80-95); MPV 9.3 fL (8.0-11.0); Monocytes % 38.9 %; Neutrophils % 27.6 %; Platelet Count 177 10^3/uL (130-400); RBC 4.32 10^6/uL (3.93-5.22); RDW 12.9 % (11.7-14.6); RDW-SD 46.1 fL
[2024-07-18 08:31] LABS: Diff Comment Diff Reviewed; RBC Morphology Normal
[2024-07-18 09:35] LABS: ALT 19 U/L (14-59); AST 23 U/L (15-37); Albumin 4.4 g/dL (3.4-5.0); Alkaline Phosphatase 60 U/L (46-116); Anion Gap 7.6 mmol/L (3-11); BUN 10 mg/dL (7-18); Bilirubin, Total 0.37 mg/dL (0.2-1.0); CO2 31.4 mmol/L (21.0-32.0); CREATININE 0.7 mg/dL (0.55-1.02); Calcium 9.4 mg/dL (8.5-10.1); Calculated LDL 151 mg/dL (<100); Chloride 105 mmol/L (98-107); Cholesterol 275 mg/dL (<200); Estimated GFR 92.41 (mL/min/1.73m2); Folate 15.6 ng/mL (8.6-20.0); Glucose 98 mg/dL (74-106); HDL Cholesterol 113 mg/dL (40-60); Sodium 144 mmol/L (136-145); TSH (W/Ref FT4) 1.94 uIU/mL (0.36-3.74); Total Protein 8.1 g/dL (6.4-8.2); Triglyceride 55 mg/dL (<150); Vitamin B12 517 pg/mL (193-986)
[2024-07-18 19:13] LABS: HIV-1/2 Ag & Ab Screen Negative (Negative)
[2024-07-18 19:17] LABS: Hepatitis C Ab w Rflx HCV PCR Negative (Negative)
[2024-07-19 10:08] LABS: Syphilis Serology (RPR) Negative (Negative)
== END 2024-07-18 04:05 | disposition home or self-care (01) ==
LOC: LBO 04:04
PROVIDERS: PCP Nurse Practitioner Adult Health; Referring Provider Nurse Practitioner Adult Health; Visit Provider Nurse Practitioner Adult Health
DX: E03.9 Hypothyroidism, unspecified (principal); Z11.4 Encounter for screening for human immunodeficiency virus [HIV]; Z11.59 Encounter for screening for other viral diseases; Z13.220 Encounter for screening for lipoid disorders; Z13.1 Encounter for screening for diabetes mellitus; E53.8 Deficiency of other specified B group vitamins; Z71.1 Person with feared health complaint in whom no diagnosis is made; Z81.8 Family history of other mental and behavioral disorders
CPT/HCPCS: 36415; 80053; 80061; 86803; 87389; 82607; 82746; 83735; 84443; 85025; 86592

== ENCOUNTER 2025-01-28 03:46 | Outpatient (CLI) | payer MEDICARE, SELFPAY ==
[2025-01-28 13:15] LABS: HCT 35.8 % (36.0-46.0); HGB 12.1 g/dL (11.2-15.7); MCH 32.4 pg (27.0-33.0); MCHC 33.8 % (32.0-36.0); MCV 96 fL (80-95); MPV 9.4 fL (8.0-11.0); Platelet Count 167 10^3/uL (130-400); RBC 3.74 10^6/uL (3.93-5.22); RDW 12.8 % (11.7-14.6); RDW-SD 44.7 fL; WBC 3.34 10^3/uL (4.4-10.8)
[2025-01-28 14:26] LABS: ALT 24 U/L (14-59); AST 22 U/L (15-37); Albumin 4.1 g/dL (3.4-5.0); Alkaline Phosphatase 61 U/L (46-116); Anion Gap 7.3 mmol/L (3-11); BUN 14 mg/dL (7-18); Bilirubin, Total 0.4 mg/dL (0.2-1.0); CO2 31.7 mmol/L (21.0-32.0); Calcium 8.8 mg/dL (8.5-10.1); Chloride 101 mmol/L (98-107); Estimated GFR 95.90 (mL/min/1.73m2); Folate 10.1 ng/mL (8.6-20.0); Glucose 98 mg/dL (74-106); Potassium 4.4 mmol/L (3.5-5.1); Sodium 140 mmol/L (136-145); TSH (W/Ref FT4) 4.68 uIU/mL (0.36-3.74); Total Protein 7.4 g/dL (6.4-8.2); Vitamin B12 478 pg/mL (193-986)
[2025-02-03 17:40] LABS: Apolipoprotein B, Serum 94 mg/dL (48-124); Beta VLDL Cholesterol Not Detected mg/dL (<15); Beta VLDL Triglycerides Not Detected mg/dL (<15); Cholesterol, Total, CDC 250 mg/dL; Chylomicron Cholesterol Not Detected; Chylomicron Triglycerides Not Detected; HDL Cholesterol, CDC 87 mg/dL (>=50); LpX Not detected; Triglycerides, CDC 88 mg/dL; VLDL Triglycerides 35 mg/dL (<120)
== END 2025-01-28 03:47 | disposition home or self-care (01) ==
PROVIDERS: PCP Nurse Practitioner Adult Health; Referring Provider Nurse Practitioner Adult Health; Visit Provider Nurse Practitioner Adult Health
DX: E78.5 Hyperlipidemia, unspecified (principal); R41.89 Other symptoms and signs involving cognitive functions and awareness; E03.9 Hypothyroidism, unspecified
CPT/HCPCS: 36415; 80053; 80061; 85027; 82172; 82607; 82664; 82746; 84439; 84443

== ENCOUNTER 2025-03-21 09:44 | Outpatient (CLI) | payer MEDICARE, SELFPAY ==
[2025-03-21 14:08] LABS: Abs Immature Grans 0.02 10^3/uL (0.0-0.06); HCT 39.3 % (36.0-46.0); HGB 12.9 g/dL (11.2-15.7); Immature Grans % 0.4 %; MCH 31.0 pg (27.0-33.0); MCHC 32.8 % (32.0-36.0); MCV 95 fL (80-95); MPV 9.0 fL (8.0-11.0); Platelet Count 185 10^3/uL (130-400); RBC 4.16 10^6/uL (3.93-5.22); RDW 12.6 % (11.7-14.6); RDW-SD 43.9 fL; WBC 5.05 10^3/uL (4.4-10.8)
[2025-03-21 15:09] LABS: TSH (W/Ref FT4) 3.28 uIU/mL (0.36-3.74)
[2025-03-21 15:10] LABS: RBC Morphology Normal
== END 2025-03-21 09:45 | disposition home or self-care (01) ==
LOC: LBO 09:44
PROVIDERS: PCP Nurse Practitioner Adult Health; Visit Provider Nurse Practitioner Adult Health
DX: E03.9 Hypothyroidism, unspecified (principal); R79.89 Other specified abnormal findings of blood chemistry
CPT/HCPCS: 36415; 84443; 85025